=== PATIENT | male | born 1950 | race Caucasian/White ===

== ENCOUNTER 2018-01-09 06:51 | Day surgery (SDC) | payer MEDICARE, SELFPAY ==
[2018-01-09] VITALS (7 sets, daily range): BP systolic 91–166; BP diastolic 56–74; PULSE 54–67; RESP 16–18; TEMP 36.3–36.8; O2SAT 98–100; BMI 24.2
--- NOTE | 2018-01-09 07:58 | H&P.OPEN ---
Past Medical/Surgical History - Planned Operation Planned Operative Procedure/s: cscope Date of Operative Procedure: 01/09/18 Permit Signed: No S.O.S: No Is This Patient Having a Total Joint: No - Previous Hospitalizations/Surgeries HX Hospitalizations: No HX of Surgeries: heart stent x2,x3 2004,2006. colonoscopy Any Problems With Anesthesia: No You/Your Family Experience Fever (Hyperthermia) With Anes: No Cholinesterase deficiency: No - Cardiovascular Hx Chest Pain within Last 2 months: No Hx of Irregular Heartbeat and/or Afib: Yes - irreg./follows with dr ureña/last visit 11/2017 Hx Heart Attack: Yes - 2004 total of 5 stents Hx Congestive Heart Failure: No Hx Rheumatic Fever: No Hx Hypertension: No Hx Internal Defibrillator: No Hx Pacemaker: No Hx Cardiac Catheterization: Yes - 2005 at [facility] What facility was last heart cath performed: [facility] Date of last Heart Cath: 2005 Hx Cardiac Surgery/Stents/Etc.: Yes - 2004,2005 heart stents x5 Hx Stress Test: Yes - 2016 at [facility] HX Edema: No Hx Pain in Legs when Walking/Leg Cramps: Yes - Respiratory Chronic Cough: No HX of Shortness of Breath: No Hoarseness: Yes Hx Chronic Obstructive Pulmonary Disease (COPD): No Hx Asthma: No Hx Emphysema: No Hx Sleep Apnea: No Hx Oxygen Use at Home: No Hx Respiratory Tract Infection/Cold (presently): No Do You Snore Loudly (louder than talking or can be heard): No Do You Often Feel Tired/ Fatigued/ Sleepy Dring Daytime?: Yes Has Anyone Observed You Stop Breathing During Sleep?: No Result (for STOP score): Negative Hx Smoking: No Smoking Status: Never smoker - Gastrointestinal Hx Gastroesophageal Reflux: Yes - resolved with weight loss/occ heartburn Controlled With Meds: No Hx Gastrointestinal Disorders: No Hx Gastrointestinal Bleed: No Hx Ulcer: No Hx Hiatal Hernia: No Difficulty Chewing/Swallowing: No Recent Onset of Swallowing Problems: No Special diet followed at home: Yes - vegan Hx Unplanned Weight Loss of 20#: No HX Unplanned Weight Gain of 20#: No - Neurological Hx Seizures: Yes - febrile seizures as child HX Syncope/Blackout Spells/Unconsciousness: No Hx CVA/Stroke: No Hx Transient Ischemic Attacks (TIA): No Hx Multiple Sclerosis: No Hx Parkinson's Disease: No Hx Head/Neck Injury: No Hx Headaches: No Hx Back Injury/Pain: No Recent Onset of Speech Difficulty: No Restless Legs: Yes Does patient have nerve stimulator: No Patient instructed to have device shut off: No Rep notified?: No - Blood Disorder Hx Leukemia: No Bleeding Tendencies: No Hx Deep Vein Thrombosis: No Hx High Cholesterol: Yes - in the past/controlled with vegan diet Blood Transmitted Disease: No Hx Hepatitis: No Hx Cirrhosis: No Hx Anemia: No Hx Blood Disorders: No - Genitourinary Hx Renal Disease: No Hx Dialysis: No - Musculoskeletal Hx Arthritis: Yes - oa Hx Rheumatoid Arthritis: No Hx Gout: No Recent Onset of an Orthopedic Problem: No - Endocrine Hx Diabetes: No Thyroid Disease: Yes - on med Hx Steroid Therapy: No - Psycho/Social Hx Substance Use: No Hx Alcohol Use: No Hx Anxiety: Yes - mild Hx Depression: No Mental Illness: No Hx Dementia: No - Miscellaneous Hx Cancer: No Recent Exposure to Contagious Disease: No Active MRSA: No Hx of C-Diff: No Any Loose Teeth: No Allergies No Known Allergies Allergy (Verified 01/08/18 09:16) - Discharge Is Pt Admitted From a Long Term, or a Care Home: No Who Could Help: After D/C, Where Do you Plan to Go: Return Home - From the PAT History Number of Risk Factors: 4 - Physical Exam General: Alert, Oriented x3, Cooperative HEENT: Atraumatic Lungs: Normal air movement Cardiovascular: Regular rate, Regular Rhythm Abdomen: Soft, Non Tender, Non-Distended Vital Signs Temp Pulse Resp BP Pulse Ox 97.5 F L 67 16 116/71 99 01/09/18 07:05 01/09/18 07:05 01/09/18 07:05 01/09/18 07:05 01/09/18 07:05 Oxygen Delivery Method Room Air Weight: 198 lb 13.711 oz Body Mass Index (BMI) 24.2 Assessment/Plan Patient is a 67-year-old male for screening colonoscopy. 1. Patient reports he has had a colonoscopy 10 years ago which was normal. He has no abdominal pain or blood in his stool. He has no family history of colon cancer. 2. I explained endoscopy in detail to the patient. I explained the risks including but not limited to stroke or heart attack with anesthesia, perforation of the GI tract, bleeding, infection. I explained that any of these could necessitate further emergency surgery. The patient understands and all questions were answered sufficiently. The patient wishes to proceed with procedure. Elijah Jones MD Pager: [facility] [address] [place] [address] [address] [place] [address] Office: Surgery Risks - Colonoscopy Risks Include but are not Limited To: Risks include but are not limited to: Bleeding, perforation requiring further surgery, inability to complete colonoscopy requiring barium enema.
--- NOTE | 2018-01-09 08:42 | OP.ENDO_ITS ---
Patient Name: Jericho Wagoner Procedure Date: 01/09/2018 7:51 AM Date of : 1950 Age: 67 Procedure: Colonoscopy Indications: Screening for colorectal malignant neoplasm Providers: Elijah Jones MD Medicines: Monitored Anesthesia Care Patient Profile: This is a 67 year old male. Last Colonoscopy: 10 years ago. Complications: No immediate complications. Procedure: Pre-Anesthesia Assessment: - Prior to the procedure, a History and Physical was performed, and patient medications and allergies were reviewed. The patient's tolerance of previous anesthesia was also reviewed. The risks and benefits of the procedure and the sedation options and risks were discussed with the patient. All questions were answered, and informed consent was obtained. Prior Anticoagulants: The patient has taken no previous anticoagulant or antiplatelet agents. After reviewing the risks and benefits, the patient was deemed in satisfactory condition to undergo the procedure. After I obtained informed consent, the scope was passed under direct vision. Throughout the procedure, the patient's blood pressure, pulse, and oxygen saturations were monitored continuously. The pediatric colonoscope was introduced through the anus and advanced to the cecum, identified by the appendiceal orifice, ileocecal valve and palpation. The colonoscopy was performed without difficulty. The patient tolerated the procedure well. The quality of the bowel preparation was inadequate. Scope In: 8:06:00 AM Scope Withdrawal Time 0 hours 8 minutes 26 seconds Scope Out: 8:35:22 AM Total Procedure Duration Time 0 hours 29 minutes 22 seconds Findings: The entire examined colon appeared normal on direct and retroflexion views. Impression: - Preparation of the colon was inadequate. - The entire examined colon is normal on direct and retroflexion views. - No specimens collected. Recommendation: - Discharge patient to home. - Resume previous diet. - Continue present medications. - Repeat colonoscopy in 1 year because the bowel preparation was suboptimal. Procedure Code(s): --- Professional --- G0121, Colorectal cancer screening; colonoscopy on individual not meeting criteria for high risk Diagnosis Code(s): --- Professional --- Z12.11, Encounter for screening for malignant neoplasm of colon CPT copyright 2017 [employer]. All rights reserved. The codes documented in this report are preliminary and upon farm crops teacher review may be revised to meet current compliance requirements. Elijah Jones MD 01/09/2018 8:42:18 AM This report has been signed electronically. Number of Addenda: 0 Note Initiated On: 01/09/2018 7:51 AM
== END 2018-01-09 09:37 | disposition home or self-care (01) ==
LOC: EN 06:51 → AC 06:52
PROVIDERS: Family Provider Family Medicine; PCP Family Medicine; Referring Provider Surgery; Visit Provider Surgery
PROC: 0DJD8ZZ Inspection of Lower Intestinal Tract, Via Natural or Artificial Opening Endoscopic (ICD-10-PCS; CPT 45378; principal; 2018-01-09 07:55)
DX: Z12.11 Encounter for screening for malignant neoplasm of colon (principal); I25.2 Old myocardial infarction; G25.81 Restless legs syndrome; M19.90 Unspecified osteoarthritis, unspecified site; E06.9 Thyroiditis, unspecified; F41.9 Anxiety disorder, unspecified; I49.9 Cardiac arrhythmia, unspecified; Z86.39 Personal history of other endocrine, nutritional and metabolic disease; Z86.19 Personal history of other infectious and parasitic diseases; Z95.5 Presence of coronary angioplasty implant and graft; Z79.82 Long term (current) use of aspirin; Z79.899 Other long term (current) drug therapy
CPT/HCPCS: G0121; J7120

== ENCOUNTER 2018-04-30 10:00 | Outpatient (RCR) | payer MEDICARE, SELFPAY ==
--- NOTE | 2017-12-04 15:15 | HP.PTEVAL_ITS ---
Patient's Visit Information ANISH MENDOZA is a 67 year old M referred to Physical Therapy by Chon Banks DO with a diagnosis of LOW BACK PAIN,CHRONIC PAIN. Date of Evaluation: 12/04/17 Physical Therapist: Kenan Beth PT, - Visit Plan Frequency: 1-2x /Week Duration: 4 Weeks Plan: POSTURAL EX'S ,LE FLEXABLITY HIP ,STRENGTHENING HIPS DLS - Subjective Subjective: This 67 y/o male presents to physical therapy with low back pain . Patient has had pain located hip anterior and mid ocassionally lumbar. Patient lifting cooler caused back pain. Patient pain concern unable to standing upright and tight hip muscles unable ride motorcycle.Denies parthesia/tingling. Coughing /sneezing -. Patient wakes up throughout night. Patient symptoms worse in walking ,standing,elevation from chair unable to stand upright.Symptoms better movement,eating.Patient symptoms affect QOL and function. 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 SOCAIL: . HOBBIES: dancing - Pain Bilateral Back Pain Intensity (Out of 10): 0 Pain Intensity Range: 10 Bilateral Hip Pain Intensity (Out of 10): 4 Pain Intensity Range: 10 - Objective POSTURE: anterior tilt,hips/knees flexed flexed foward. GAIT: mild foward posture,hips/knees flexed reciproacl pattern. NEURO: denies parathesia/tingling ,reflexes L3-4,L4-5,L5-S1. MMT:Quads/hams 5/5,hip flexion 4/5,hip abd 3+/5,4-/5 ,ankle 5/5. FLEXABLITY: hipd add mod tight ,hip flexors mod tight,piriformis mod tight. LUMBAR ROM: flexion WFL,extension mod loss,side glides min loss. + Giancarlo test - Special Tests L/S Slump test left side: Negative L/S Slump test right side: Negative L/S Left Straight Leg Raise: Negative L/S Right Straight Leg Raise: Negative R Hip Scour: Positive R Hip [place] - Intraarticular Pathology: Negative R Hip Trendelenberg - Glut Medius: Negative R Hip Bernardo - IT Band: Negative L Hip Scour: Positive L Hip Trendelenberg - Glut Medius: Negative L Hip Bernardo - IT Band: Negative - Goals Goal 1:: Independant with HEP Goal Time Frame: 2-4 Weeks Goal 2:: Improve ROM of hips ROM to improve hobbies and function with ADL'S Goal Time Frame: 2-4 Weeks Goal 3:: Increase strength of bilateral hip abd to 4/5 with less pain to improve function with ADL'S. and hobbies. Goal Time Frame: 2-4 Weeks Goal 4:: Patient to improve ability with hobbies and ADLS' with less hip and back pain. Goal Time Frame: 2-4 Weeks Goal 5:: Patient to improve back owestry by 5 points to improve QOL. Goal Time Frame: 2-4 Weeks - Rehabilitation Potential Physical Therapy Diagnosis: This patient has weakness of bilteral hip abd with decrease ROM ,anterior tilt from tight hip flexors and decrease lumbar ROM thus patient benifit from skilled PT Rehabilitation Potential: Good - Anticipated Interventions Patient/Client Instruction: Educate patient on: Condition, Plan of Care For the Purpose of:: To decrease pain, To increase ROM, To improve muscle performance and motor function, To increase tolerance to activity/condition/ position, To improve ability of physical actions for home/community/work/leisure , To improve health of tissue, To decrease soft tissue restriction, To increase flexibility/ROM, To reduce risk of recurrence, To improve ability to perform tasks related to life management Therapeutic Exercise to Include: Strength training, Body mechanics, Postural training, Flexibilty training, Dynamic Lumbar Stabilization Comment: LE FLEXABLITY HIP/PRE'S For the Purpose of:: To decrease pain, To increase ROM, To improve muscle performance and motor function, To increase tolerance to activity/condition/ position, To improve ability of physical actions for home/community/work/leisure , To improve health of tissue, To decrease soft tissue restriction, To increase flexibility/ROM, To improve ability to perform tasks related to life management TENS: Yes IF ES: Yes Cryotherapy (ice pack, ice massage): Yes Thermo therapy (hot pack): Yes Ultrasound (thermal/non thermal): Yes For the Purpose of:: To decrease pain, To increase ROM, To improve health of tissue, To decrease soft tissue restriction, To increase flexibility/ROM Thank you for the opportunity to evaluate your patient. For Medicare and Medicare HMO plans, please review the plan of care and approve it. It will need to be FAXED BACK to us at [phone] for Medicare purposes. Please let me know if there are questions or concerns regarding this plan of care. Physician Signature: Date:
--- NOTE | 2018-07-04 16:54 | HP.PTDCNRP_ITS ---
HP - Discharge Summary (1) - Patient Information ANISH MENDOZA was seen in my office for initial evaluation on 12/04/17. The following Plan of Care was established for this patient: Initial Frequency: 1-2x /Week Initial Duration: 4 Weeks - Anticipated Interventions Patient/Client Instruction: Educate patient on: Condition, Plan of Care For the Purpose of:: To decrease pain, To increase ROM, To improve muscle pe rformance and motor function, To increase tolerance to activity/condition/position, To improve ability of physical actions for home/community/work/leisure, To improve health of tissue, To decrease soft tissue restriction, To increase flexibility/ROM, To reduce risk of recurrence, To improve ability to perform tasks related to life management Therapeutic Exercise to Include: Strength training, Body mechanics, Postural training, Flexibilty training, Dynamic Lumbar Stabilization For the Purpose of:: To decrease pain, To increase ROM, To improve muscle performance and motor function, To increase tolerance to activity/condition/position, To improve ability of physical actions for home/community/work/leisure, To improve health of tissue, To decrease soft tissue restriction, To increase flexibility/ROM, To improve ability to perform tasks related to life management TENS: Yes IF ES: Yes Cryotherapy (ice pack, ice massage): Yes Thermo therapy (hot pack): Yes Ultrasound (thermal/non thermal): Yes For the Purpose of:: To decrease pain, To increase ROM, To improve health of tissue, To decrease soft tissue restriction, To increase flexibility/ROM This patient was last seen in our office 04/30/18. Pertinent comments regarding their Physical therapy will appear below: This patient seen for PT for lumbar pain with PT focusing on flexablity due to tight hips,strength hips,core abd /back ,moblity thus is d/c from PT. At this point I will be discontinuing this patient from physical therapy. I would be happy to see this patient again in the future if found appropriate by the physician. Thank you! Kenan Beth, PT, Cert MDT, OCS
== END 2018-04-30 19:00 | disposition home or self-care (01) ==
LOC: PT 10:00
PROVIDERS: Family Provider Family Medicine; PCP Family Medicine; Visit Provider Family Medicine
DX: M54.5 Low back pain (principal); G89.29 Other chronic pain
CPT/HCPCS: 97110; 97162

== ENCOUNTER → 2018-10-13 | Outpatient (CLI) | payer MEDICARE, SELFPAY ==
[2018-09-12 11:24] VITALS: BMI 24.5
[2018-10-13 12:20] LABS: Albumin, Serum 3.4 g/dL (3.2-5.0)
== END | disposition home or self-care (01) ==
PROVIDERS: Family Provider Family Medicine; PCP Family Medicine; Referring Provider Specialist; Visit Provider Specialist
DX: Z01.812 Encounter for preprocedural laboratory examination (principal)
CPT/HCPCS: 36415; 82040

== ENCOUNTER 2018-10-17 08:14 | Inpatient (IN) | payer MEDICARE, SELFPAY ==
[2018-06-19 11:52] VITALS: BMI 24.5
[2018-09-12 11:24] VITALS: BP 105/58; PULSE 58; RESP 98; TEMP 36.6; O2SAT 17; BMI 24.5
[2018-09-12 12:39] LABS: Absolute Lymphocyte Count 1.29 X10^3/ul (0.83-4.51); Absolute Neutrophil Count 3.9 X10^3/uL (2.0-7.7); Basophil# 0.01 X10^3/uL; Basophil% 0.2 % (0-1); Eosinophil# 0.05 X10^3/uL; Eosinophils% 0.8 % (0-5); Hematocrit 45.8 % (40-54); Hemoglobin 14.9 g/dl (13.0-16.5); Lymphocyte # 1.29 X10^3/ul (4.0); Lymphocyte % 21.9 % (19-41); Mean Corp Hgb Conc 32.5 g/gl (32-36); Mean Corpuscular Hgb 32.5 pg (27.0-32.0); Mean Platelet Vol. 11.2 fl (6.2-12.0); Monocyte# 0.69 X10^3/uL; Monocyte% 11.7 % (0-10); Neutrophil # 3.86 X10^3/uL (2.7-7.7); Neutrophil % 65.4 % (47-70); Platelet Count 139 K/mm3 (150-450); RBC Distribution Width CV 13.4 % (11.6-14.6); RBC Distribution Width SD 48.6 fl (35.1-43.9); Red Blood Count 4.58 M/mm3 (4.6-6.2); White Blood Count 5.9 K/mm3 (4.4-11.0)
[2018-09-12 12:42] LABS: POSITIVE COUNT NO; POSITIVE DIFFERENTIAL NO; POSITIVE MORPHOLOGY NO
[2018-09-12 13:12] LABS: Anion Gap 6 (5-15); BUN 17 mg/dL (7-18); BUN/Creat Ratio 15.2 RATIO (10-20); Calcium,Total 8.7 mg/dL (8.5-10.1); Chloride 108 mmol/L (98-107); Creatinine, Serum 1.12 mg/dL (0.70-1.30); EST Glomerular Filtration Rate 69 mL/min (>60); Est Glom Filt Rate - Afr Amer 83 mL/min (>60); Estimated Creatinine Clearance 75.35 ml/min; Glucose 88 mg/dL (74-106); Potassium 4.2 mmol/L (3.5-5.1); Sodium Level 141 mmol/L (136-145); Thyroid Stim Hormone (TSH) 3.17 uIU/mL (0.358-3.74)
--- NOTE | 2018-09-14 23:00 | PCM.HP.BLA ---
History and Physical History and Physical Patient Name: Jericho GastonB: 1950 From: TRINH BURGOS PA-C DATE OF SURGERY: 09/26/2018 SCHEDULED PROCEDURE: Left total Hip arthroplasty HISTORY OF PRESENT ILLNESS: Preoperative history and physical exam was performed on September 12, 2018. This is a 68-year-old male who has been having ongoing pain in bilateral hips for the past couple years. Patient denied any trauma or injury. Patient states over the past 3 months pain has become worse. Patient does have start up pain. They can rates as high as a 10/10 with activity. He complains of stiffness in bilateral hips. Patient states his pain is intermittent, aching, sharp, stabbing. Patient has difficult time with activities of daily living including dancing as well as motorcycle riding. He feels unsafe riding his motorcycle. Patient has difficult time getting dressed and putting on his socks. He has increased pain riding in a car. 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 Patient has been using meloxicam which helped initially left hip is worse than the right hip. He does complain of groin pain bilaterally. Patient has a medical history pertinent for hypercholesterolemia as well as previous heart stents and 2006. Has had previous heart attack. Patient denies previous surgeries on bilateral hips. We are currently getting surgical clearance from patient's director of knowledge management as well as primary care physician. He currently denies chest pain, shortness of breath, fevers chills or recent infections. After failing conservative measures and discussing treatment options with Dr. Darinel Awan, the patient would like to proceed with a left total hip arthroplasty. REVIEW OF SYSTEMS: ROS: Const: Denies anorexia, change in appetite, fever, difficulty sleeping, weight change. CV: Reports peripheral vascular disease, but denies chest pain, heart murmur and irregular heartbeat. Resp: Denies asthma, cough, pneumonia, sleep apnea, shortness of breath, tuberculosis and wheezing. GI: Reports heartburn, but denies constipation, diarrhea, nausea, rectal itching, bloody stools and vomiting. : Denies incontinence. Musculo: Reports pain and morning stiffness, but denies leg swelling, trouble walking and weakness. Skin: Denies Raynaud's, history of shingles and tattoo. Neuro: Reports numbness/tingling but denies ambulatory dysfunction, dizziness and tremor. Psych: Reports anxiety, but denies depression, insomnia, mental illness and stress. Zeeshan/Lymph: Denies anemia, bleeding/bruising tendency and past transfusion. Reviewed, no changes. PAST MEDICAL HISTORY: Advance Care Plan: Other Directive, POA Effective Date: 08/16/2018 Other Directive, LIVING WILL Effective Date: 08/16/2018 PMH: Medical Problems: Heart Attack - history of Hypercholesterolemia Accidents: Fracture - left wrist as a child Sports Related Injury - right jean laceration 70 stitches RT Thumb Surgical Hx: heart stents - (2004) total of 4 stents AND 2006 Tonsillectomy, RT Thumb Stitches Anesthesia Complications: None Assistive Devices: Glasses Reviewed, no changes. 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 Personal Habits: Cigarette Use: Never.Smokeless Tobacco: Never Used Smokeless Tobacco - (09/12/2018).E-Cigarette Use: Never used.Alcohol: Denies use.Drug Use: Denies Use.Enjoy Exercising: Exercises 1-3 X/Week. Reviewed and updated. VITALS: Ht: 75 Wt: 200lb Wt k.720 BMI: 25.0 BP: 102/60 Pulse: 64 Resp: 16 T: 96.9 T: 36.1C ALLERGIES: No Known Drug Allergy MEDICATIONS: Potassium 10 Meq 1 po qday, Aspir-Low 81 mg 1 po qd, [place]-3 Fish Oil 1000 mg 1 po qd, Metoprolol Succinate ER 25 mg 1 PO daily, Meloxicam 7.5 mg prn every other day, Co Q10 100 mg 1 by mouth every day, Levothyroxine 88mcg 1 PO daily, Tylenol 325 mg 1po qhs, Lipitor 20 mg 1 by mouth every day PRE-OP EXAM: General appearance:NORMAL Other: Eyes: Conjunctivae and lids: NORMAL Pupils: ERR Ears, Nose, Mouth, and Throat: NORMAL Other: Inspection of lips, teeth and gums: NORMAL Other: Neck: Examination of neck: no masses noted. Respiratory: Assessment of respiratory effort: NORMAL Other: Auscultation of lungs: clear to auscultation no wheezes, rhonchi or rales. Cardiovascular: Auscultation of heart: regular rate and rhythm, no murmurs, gallops or rubs. Gastrointestinal: Exam of abdomen: soft, nontender, nondistended bowel sounds present. PHYSICAL EXAMINATION: Patient walks with an antalgic gait. Left hip flexion: 65 flexion, internal rotation neutral, external rotation 20. Patient has obligatory external rotation with flexion. 2 mm shorter on the left. Sensation intact to light touch. Neurovascularly intact. Diagnostic studies: Bilateral hips reveal joint space narrowing, subchondral sclerosis, osteophyte formation consistent with severe bilateral hip osteoarthritis with the left being worse than the right. IMPRESSION: 1. Left hip osteoarthritis 2. Right hip osteoarthritis 3. Hypercholesterolemia 4. History of heart attack 5. History of heart stents PLAN: Dr. Darinel Awan did discuss and review with the patient all treatment options including surgical versus nonsurgical options. Patient does wish to proceed with the above-stated procedure. Potential risks, benefits, and complications of the procedure were discussed in detail including but not limited to , infection, nerve and blood vessel damage, persistent pain, numbness, tingling, paresthesias, blood clot, pulmonary embolism, and requirement for possible further surgery. The patient expressed full understanding and has no further questions for the doctor. Patient does agree to proceed with the above-stated procedure and has signed the surgery consent form. This dictation was created using voice recognition software. Phonetic and/or grammatical errors may exist.. ___ I have re-examined the patient. There are no clinical changes since date of exam. ___ See progress notes for changes. ___ Dictated on admission Date: Time: Signature:
--- NOTE | 2018-09-21 12:19 | CASEMGMT ---
Spoke with patient regarding discharge plans for after upcoming surgery. Patient reports he believes he has a cardiac ablation scheduled for October 01 and is unsure of when his hip surgery will be. After hip surgery, patient plans to return home with assistance from spouse/family. Patient believe that he has outpatient PT set up but it was be changed if surgery date is changed, will have transportation assistance. Patient has a wheeled walker, toilet riser, and grab bars. Has a tub/shower combo with 1 small step to enter. There is a bedroom and bathroom on the 1st level of the home. There are 3-4 steps to enter home from garage. Informed patient that after surgery, RN-CM will follow up for further discharge planning. Roxy Hobson LPN Clinical Support
--- NOTE | 2018-10-11 15:30 | EKG12_ITS ---
Test Reason : PRE OP Blood Pressure : / mmHG Vent. Rate : 060 BPM Atrial Rate : 060 BPM P-R Int : 212 ms QRS Dur : 092 ms QT Int : 432 ms P-R-T Axes : 063 039 065 degrees QTc Int : 432 ms Sinus rhythm with 1st degree A-V block Possible Left atrial enlargement Borderline ECG Confirmed by KORINA TINEO, TERRIE ([id number]), writer editor FRANCESCO MARTÍNEZ ([id number]) on 10/12/2018 1:40:42 PM Referred By: Darinel Awan Confirmed By:ALYSE HUI MD
[2018-10-11 16:06] LABS: Absolute Lymphocyte Count 1.25 X10^3/uL (0.83-4.51); Basophil# 0.03 X10^3/uL; Basophil% 0.5 % (0-1); Eosinophil# 0.15 X10^3/uL; Eosinophils% 2.4 % (0-5); Hematocrit 40.6 % (40-54); Hemoglobin 13.3 g/dL (13.0-16.5); Lymphocyte # 1.25 X10^3/ul (4.0); Lymphocyte % 19.9 % (19-41); Mean Corp Hgb Conc 32.8 g/dL (32-36); Mean Corpuscular Hgb 33.2 pg (27.0-32.0); Mean Corpuscular Volume 101.2 fL (80-94); Mean Platelet Vol. 10.8 fl (6.2-12.0); Monocyte% 11.1 % (0-10); NRBC Flagged by Analyzer 0 % (0-5); Neutrophil # 4.15 X10^3/uL (2.7-7.7); Neutrophil % 65.9 % (47-70); POSITIVE MORPHOLOGY YES; Platelet Count 170 K/mm3 (150-450); RBC Distribution Width SD 48.9 fl (35.1-43.9); Red Blood Count 4.01 M/mm3 (4.6-6.2); White Blood Count 6.3 K/mm3 (4.4-11.0)
[2018-10-11 16:22] LABS: Differential Indicated SCAN CRITERIA MET
[2018-10-11 16:34] LABS: Anion Gap 4 (5-15); BUN 18 mg/dL (7-18); BUN/Creat Ratio 19.1 RATIO (10-20); Calcium,Total 8.4 mg/dL (8.5-10.1); Chloride 106 mmol/L (98-107); Creatinine, Serum 0.94 mg/dL (0.70-1.30); EST Glomerular Filtration Rate 84 mL/min (>60); Est Glom Filt Rate - Afr Amer 102 mL/min (>60); Estimated Creatinine Clearance 89.78 ml/min; Glucose 85 mg/dL (74-106); Potassium 4.3 mmol/L (3.5-5.1); Sodium Level 140 mmol/L (136-145)
[2018-10-11 17:04] LABS: Differential Comment SCANNED
[2018-10-16 14:05] VITALS: BMI 24.5
[2018-10-17] VITALS (12 sets, daily range): BP systolic 103–133; BP diastolic 49–75; PULSE 50–61; RESP 16–18; TEMP 36.3–36.7; O2SAT 97–100; BMI 24.5
[2018-10-17] MEDS: Lactated Ringers 1,000 ML 999 ML IV (07:15)
[2018-10-17] MEDS: Magnesium Sulfate 4gm/100mL 4 GM/100 ML IV.SOLN. IV (09:05)
[2018-10-17] MEDS: Gabapentin 600 MG Tablet PO (09:13)
[2018-10-17] MEDS: Acetaminophen 500 MG Tablet 1000 MG PO ×2 (09:13→22:54)
[2018-10-17] MEDS: Scopolamine 1mg/72hr Patch 1 PATCH TD (09:15)
[2018-10-17 09:21] LABS: Bedside Glucose 97 mg/dL (70-110)
[2018-10-17] MEDS: Cefazolin 2 GM in 0.9% Normal Saline 100 ML IV (10:44)
--- NOTE | 2018-10-17 11:45 | RAD_ITS ---
STUDY: X-RAY - PELVIS AND LEFT HIP REASON FOR EXAM: Male, 68 years old. Hip replacement surgery TECHNIQUE: Single limited AP views of the pelvis and hip. COMPARISON: None. FINDINGS: Single limited AP view of the left hip was performed in the operating room as the patient is undergoing total left hip replacement surgery. Components demonstrate anatomic alignment. No plain film evidence of complication. RAD/Hip 1 view with Pelvis IMPRESSION: Limited AP film of the left hip performed during replacement of the left hip joint. Electronically Signed: Sherman Ibrahim MD at 12:34 EDT , Service support ,
--- NOTE | 2018-10-17 12:07 | PCM.OPRPT ---
Report of Operation Date of Procedure: 10/17/18 Pre-Operative Diagnosis: Left hip primary osteoarthritis Post-Operative Diagnosis: Left hip primary osteoarthritis Surgery/Procedure Performed:: Left direct anterior total hip replacement Description of Surgical Findings:: Stable hip with equal leg lengths director of early childhood education: Danika Escobar Type of Anesthesia:: Spinal General Anesthesia Anesthesiologist: Randall Perez Special Medications: 2 g Ancef, 1 g TXA at incision, 1 g TXA closure, 10 mg Decadron, joint cocktail (5 mg Duramorph, 30 mL of 0.5% Ropivicaine, 1000 units of epinephrine, 30 mg of Toradol) Specimen's removed: Bony cuts Estimated Blood Loss (mL): 250 mL Fluids Replaced: 800 mL crystalloid Description of Procedure: Components used: 1. Accolade 2 Ofelia femoral stem size 9 127? 2. Mason trident 2 acetabular shell size 60 mm 3. Mason X3 polyethylene G 4. Ofelia Biolox delta 36mm, -5mm femoral head Brief history operative indications: 68yo male who failed conservative measures for their hip osteoarthritis. X-rays were consistent with osteoarthritis including joint space narrowing, osteophyte formation and subchondral cysts. Total hip replacement was discussed with the patient with risks and benefits including but not limited to blood loss, DVTs, PEs, neurovascular damage, dislocation, general risks of anesthesia including loss of life. Patient demonstrated an understanding medical clearance is obtained the patient was consented for surgery. Procedure: On the date of procedure the patient's L hip was marked in the preoperative area. Patient was then taken back to the operating room where anesthesia assumed control of the C-spine and airway and administered anesthetic. Patient was transferred to the operating table and placed in the supine position. The hips were placed at the break of the bed and a sacral bump was placed. The L lower extremity was then prepped out in a sterile fashion using chlorhexidine while the surgeon scrubbed. The PA was vital in the positioning of the patient. Upon reentering the room the L lower extremity was draped in the standard orthopedic fashion and the incision was marked. A timeout was called and everyone agreed upon the side, the site, the procedure be performed, antibody given, and patient's identity. At this time incision was made through skin, subcutaneous tissue, and fat down to fascia. The fascia was then incised and the TFL was retracted laterally. A retractor was placed on the lateral border of the femoral neck. Attention was directed to the inferior portion of the approach and all crossing vessels were identified and appropriately coagulated. A retractor was then placed on the medial portion of the femoral neck. The anterior capsule was then cleared of all soft tissue and then H shaped capsulotomy was made. The retractors were then placed inside the capsule. The femoral neck was identified and a cleanup cut was made. At this time a power corkscrew was used to remove the femoral head. Attention was then turned toward the acetabulum where the soft tissues were appropriately retracted and the acetabulum was sequentially reamed to 60 mm. A 60 mm cup was then selected and impacted into place. Acetabular liner was impacted into place and locking mechanism was verified. The position of the acetabular cup was then verified under live fluoroscopy. Attention was then turned to the femur. Soft tissue releases on the medial and lateral femoral neck were appropriately done, the leg was externally rotated and lateralized. A Navarro retractor was placed medially and proximally to the greater trochanter this allowed appropriate visualization and exposure of the femoral canal. Rongeour was then used to remove excess lateral bone. A canal finder and entry broach were used to open the proximal canal. Once we verified we were down the femoral canal we subsequently broached up to a size 9 femur. The appropriate neck was placed in the previously selected head was trialed with a -5 mm neck. Traction was pulled and the hip was reduced with internal rotation. Once it was appropriately reduced and stability was checked. There was minimal shuck, equal leg lengths and appropriate stability with hyperextension and external rotation as well as with 90? flexion and internal rotation. Fluoroscopy was then also used to verify the position of the components and leg lengths using the contralateral side for comparison. The trial components were then dislocated the proximal femur was again exposed and the components were removed from the wound. The final components were verified and opened. The wound was copiously irrigated out with normal saline. The acetabulum was checked for any residual debris. The final components were placed and impacted. Traction and internal rotation were again used to reduce the hip. After adequate reduction the hip remained stable with appropriate leg lengths. The final components were once again checked with live fluoroscopy and were found to be satisfactory. The wound was then copiously irrigated with normal saline once more, and hemostasis was obtained. Closure was then done using #1 Vicryl runner to close the fascia. A 2-0 vicryl interuppted sutures were used to close the subcutaneous skin. A 3-0 Monocryl and Steri-Strips were used for final skin closure. A Silverlon dressing was placed. Patient was awakened by anesthesia and transferred to the [facility]. Patient was then transferred to the PACU for recovery. Postoperative plan: Patient will get 24 hours postop antibiotics. Patient will get in-house physical therapy and will be weight-bear as tolerated. Patient will follow up in office in 2 weeks for a wound check and x-rays. O Grafts/Implants Used: Ofelia - Complications No intraoperative complications - Admit VTE Documentation VTE Present on Admission: No VTE Mechan Device Prophylaxis: SCD's, Thigh High CARLTON Hose VTE Pharm Prophylaxis ordered?: Yes
[2018-10-17] MEDS: Lactated Ringers 1,000 ML 125 ML IV ×3 (12:37→18:37)
--- NOTE | 2018-10-17 13:15 | RAD_ITS ---
STUDY: X-RAY - PELVIS AND LEFT HIP REASON FOR EXAM: Male, 68 years old. Postop from left hip replacement surgery TECHNIQUE: 3 views of the pelvis and hip. COMPARISON: None. FINDINGS: Patient is postop from left hip replacement surgery. Components demonstrate anatomic alignment. No plain film evidence of postoperative complication. Normal postoperative soft tissue swelling and subcutaneous emphysema. Severe right hip arthrosis noted with plain film changes of AVN noted. RAD/Hip Min 2 Views (Portable) IMPRESSION: Replaced left hip joint demonstrates anatomic alignment. No plain film evidence of postoperative complication Severe right hip arthrosis with plain film changes of AVN Electronically Signed: Sherman Ibrahim MD at 14:28 EDT , Service support ,
[2018-10-17 13:16] LABS: Bedside Glucose 152 mg/dL (70-110)
[2018-10-17] MEDS: Aspirin 81 MG TAB.CHEW PO (18:38)
[2018-10-17] MEDS: Ketorolac 15 MG/ML Vial IV (18:47)
[2018-10-17] MEDS: Cefazolin 1 GM/50 ML BAG IV (19:39)
--- NOTE | 2018-10-17 19:44 | PCM.PN.HOSP ---
Subjective: 68-year-old male with a history of hyperlipidemia, CAD presents with left hip pain. He underwent a scheduled left total hip replacement. Given his radio frequency ablation of his cardiac arrhythmia he had had preclearance prior to surgery which he did fine with. He is doing well after surgery, a little bit sleepy but his states that he has been stable with his medical conditions prior to surgery. He does also have right hip pain but they deemed that the left hip was worse. Vitals/I&O's: Vital Signs Temp Pulse Resp BP Pulse Ox 97.9 F 56 L 16 103/58 L 97 10/17/18 18:41 10/17/18 18:41 10/17/18 18:41 10/17/18 18:41 10/17/18 18:41 Oxygen Flow Rate (L/min) 2 Oxygen Delivery Method Room Air Weight: 201 lb 8.04 oz Body Mass Index (BMI) 24.5 Finger Stick Blood Glucose 152 Intake and Output for Last 24 Hours 10/15/18 10/16/18 10/17/18 23:59 23:59 23:59 Intake Total 2500 / 2500 Balance 2500 / 2500 General: Alert, Oriented x3, Cooperative, No apparent distress HEENT: Atraumatic, PERRLA, EOMI, Normocephalic Oral: Moist Mucosa Neck: Supple, No JVD Lungs: Clear to auscultation, Normal air movement, No rhonchi, No wheeze, No rales, Diminished Cardiovascular: Regular rate, Regular Rhythm, Normal S1, Normal S2, No murmurs Abdomen: Soft, Non Tender, Non-Distended, No Hepato-splenomegaly Extremities: No edema, Capillary Refill Less than 3 Seconds Skin: No rashes, No breakdown, Incision - Dressing is intact Neurological: Neuro grossly intact, Sensory exam intact to light touch and pain Psych/Mental Status: Normal Affect, Appropriate Laboratory Results 10/17/18 09:09: POC Glucose 97 10/17/18 13:13: POC Glucose 152 H Current Medications Acetaminophen (Tylenol) 1,000 mg PO Q8 [facility] Last Admin: 10/17/18 18:36 Dose: Not Given Documented by: Aspirin (Aspirin, Baby) 81 mg PO BIDCM [facility] Last Admin: 10/17/18 18:38 Dose: 81 mg Documented by: Atorvastatin Calcium (Lipitor) 20 mg PO QHS [facility] Enteral Nutritional Formula (Ensure Surgery) 237 ml PO TIDCM [facility] Last Admin: 10/17/18 18:38 Dose: Not Given Documented by: Famotidine (Pepcid) 20 mg PO DAILY [facility] Lactated Ringer's () 1,000 mls @ 125 mls/hr IV .Q8H [facility] Last Admin: 10/17/18 18:37 Dose: 125 mls/hr Documented by: Cefazolin Sodium () 1 gm in 50 mls @ 150 mls/hr IV Q8H [facility] Stop: 10/18/18 03:19 Last Admin: 10/17/18 19:39 Dose: 150 mls/hr Documented by: Ketorolac Tromethamine (Toradol) 15 mg IV Q6H PRN PRN PRN Reason: MILD-MOD PAIN (1-10) Stop: 10/19/18 07:14 Last Admin: 10/17/18 18:47 Dose: 15 mg Documented by: Levothyroxine Sodium (Synthroid) 88 mcg PO DAILY@0600 [facility] Meloxicam (Mobic) 7.5 mg PO BID [facility] Metoprolol Succinate (Toprol Xl (Beta Maddie)) 25 mg PO DAILY [facility] Ondansetron HCl (Zofran) 4 mg IV Q8H PRN PRN PRN Reason: NAUSEA Oxycodone HCl (Oxyir) 2.5 mg PO Q4H PRN PRN PRN Reason: MOD-SEVERE PAIN (4-1010) Potassium Chloride (K-Dur) 10 meq PO DAILY [facility] Pramipexole Dihydrochloride (Mirapex) 0.5 mg PO QHS [facility] Promethazine HCl (Phenergan) 12.5 mg IM Q6H PRN PRN; Protocol PRN Reason: NAUSEA/VOMITING Senna/Docusate Sodium (Senokot-S, Yvonne-Colace) 2 tablet PO BID [facility] Sodium Chloride () 10 - 40 ml IV UD PRN PRN Reason: SALINE FLUSH Medical Necessity - Tobacco Use Smoking Status: Never smoker Assessment/Plan All Active Problems (Last Reviewed 10/16/18 @ 11:39 by Humera Pelletier) Bilateral hearing loss due to cerumen impaction (Acute) 1. Postop left total hip replacement -Pain control per primary -PT/OT -DVT per primary 2. CAD status post 5 stents/HLD/cardiac arrhythmia status post radio frequency ablation -Continue with aspirin, and his statin -Pressures been stable, continue with metoprolol 3. Hypothyroidism -Stable -Continue with Synthroid DVT: Aspirin Code Visit Inpatient E&M: 28130 [facility] Hosp L3
[2018-10-17] MEDS: Senna/Docusate Sodium 1 Tablet 2 TABLET PO (22:54)
[2018-10-17] MEDS: Atorvastatin Calcium 20 MG Tablet PO (22:54)
[2018-10-17] MEDS: Pramipexole Di-HCl 0.5 MG Tablet PO (22:54)
[2018-10-18] MEDS: Cefazolin 1 GM/50 ML BAG IV (02:52)
[2018-10-18 03:08] VITALS: BP 108/52; PULSE 61; RESP 16; TEMP 36.9; O2SAT 95
[2018-10-18] MEDS: Ondansetron 4 MG/2 ML Vial IV (05:05)
[2018-10-18] MEDS: 0.9% NaCl Peripheral Flush Adult/Peds IV (05:05)
[2018-10-18 05:30] LABS: Hematocrit 34.5 % (40-54); Hemoglobin 11.5 g/dL (13.0-16.5); Mean Corp Hgb Conc 33.3 g/dL (32-36); Mean Corpuscular Hgb 33.7 pg (27.0-32.0); Mean Corpuscular Volume 101.2 fL (80-94); Mean Platelet Vol. 10.8 fl (6.2-12.0); Platelet Count 140 K/mm3 (150-450); RBC Distribution Width CV 12.9 % (11.6-14.6); RBC Distribution Width SD 48.2 fl (35.1-43.9); Red Blood Count 3.41 M/mm3 (4.6-6.2); White Blood Count 13.6 K/mm3 (4.4-11.0)
[2018-10-18 05:56] VITALS: RESP 16; O2SAT 95
[2018-10-18 05:56] LABS: Anion Gap 6 (5-15); BUN 15 mg/dL (7-18); BUN/Creat Ratio 13.4 RATIO (10-20); Calcium,Total 7.7 mg/dL (8.5-10.1); Chloride 101 mmol/L (98-107); Creatinine, Serum 1.12 mg/dL (0.70-1.30); EST Glomerular Filtration Rate 69 mL/min (>60); Est Glom Filt Rate - Afr Amer 83 mL/min (>60); Estimated Creatinine Clearance 75.35 ml/min; Glucose 118 mg/dL (74-106); Potassium 4.5 mmol/L (3.5-5.1); Sodium Level 136 mmol/L (136-145)
[2018-10-18] MEDS: Levothyroxine 88 MCG Tablet PO (06:53)
[2018-10-18] MEDS: Acetaminophen 500 MG Tablet 1000 MG PO ×2 (06:53→14:50)
[2018-10-18 09:02] VITALS: PULSE 60
[2018-10-18] MEDS: Famotidine 20 MG Tablet PO (09:02)
[2018-10-18] MEDS: Aspirin 81 MG TAB.CHEW PO ×2 (09:02→17:27)
[2018-10-18] MEDS: Senna/Docusate Sodium 1 Tablet 2 TABLET PO (09:02)
[2018-10-18] MEDS: Meloxicam 7.5 MG Tablet PO (09:02)
[2018-10-18 09:18] VITALS: BP 98/52; PULSE 60; RESP 16; TEMP 36.7; O2SAT 97
--- NOTE | 2018-10-18 09:24 | PCM.PN.ORT ---
Subjective: The patient was sitting in bedside chair upon examination. Patient denies any chest pain, shortness of breath, dizziness, lightheadedness, nausea or vomiting, or calf pain. Pain is controlled on medications. Patient's only complaint is he has not been able to urinate since surgery. Patient did require to be straight cath this morning. He denies previous problems with urinary retention or any prostate issues. Otherwise he is doing well with regards to his left hip. Pain is been well controlled. Objective: Vital signs stable and afebrile. Patient is able to plantarflex and dorsiflex actively. Sensation is intact to light touch to saphenous, sural, superficial and deep peroneal, and tibial distribution. Dressing is clean dry and intact. Negative Homans bilaterally, negative signs and symptoms of DVT. - Physical Exam General: Alert, Oriented x3, Cooperative, No apparent distress Vital Signs Temp Pulse Resp BP Pulse Ox 98.1 F 60 16 98/52 L 97 10/18/18 09:18 10/18/18 09:18 10/18/18 09:18 10/18/18 09:18 10/18/18 09:18 Oxygen Flow Rate (L/min) 2 Oxygen Delivery Method Room Air Weight: 91.4 kg Body Mass Index (BMI) 24.5 Finger Stick Blood Glucose 152 Intake and Output for Last 24 Hours 10/16/18 10/17/18 10/18/18 23:59 23:59 23:59 Intake Total 2500 / 2500 4478 / 4478 Output Total 1750 / 1750 Balance 2500 / 2500 2728 / 2728 Laboratory Tests Past 24 Hrs 10/18/18 10/18/18 04:56 04:56 WBC 13.6 H RBC 3.41 L Hgb 11.5 L Hct 34.5 L MCV 101.2 H MCH 33.7 H MCHC 33.3 RDW Std Deviation 48.2 H RDW Coeff of Elizabeth 12.9 Plt Count 140 L MPV 10.8 Sodium 136 Potassium 4.5 Chloride 101 Carbon Dioxide 29.0 Anion Gap 6 BUN 15 Creatinine 1.12 Estim Creat Clear Calc 75.35 Est GFR (MDRD) Af Amer 83 Est GFR (MDRD) Non-Af 69 BUN/Creatinine Ratio 13.4 Glucose 118 H Calcium 7.7 L POC Glucose 10/17/18 13:13 POC Glucose 152 H Medical Necessity - Tobacco Use Smoking Status: Never smoker Assessment/Plan All Active Problems (Last Reviewed 10/16/18 @ 11:39 by Humera Pelletier) Bilateral hearing loss due to cerumen impaction (Acute) 1. S/P left direct anterior total hip arthroplasty POD #1 2. Continue Pain Medications: Tylenol and OxyIR 3. DVT Prophylaxis: Aspirin 81 mg twice daily for 4 weeks postoperatively 4. PT/OT: Weightbearing as tolerated 5. H & H: 11.5/34.5, asymptomatic 6. Reactive leukocytosis: Currently 13.6, afebrile. Patient did receive Decadron intraoperatively 7. Encouraged Incentive Spirometry 8. Urinary retention: Patient did require straight cath this morning. We will continue to monitor this. Case was discussed with hospitalist. 9. Continue postoperative medical management per medicine 10. Disposition: Overall patient is doing well with regards to his hip and is tolerating physical therapy. If patient is able to urinate today there will be possible discharge home. Medicine will evaluate patient for possible medication for the urinary retention. Patient's prescriptions will be attached to chart. Patient will follow-up per postop instruction.
--- NOTE | 2018-10-18 09:38 | DCINST_ITS ---
Discharge Activity: May Not Drive - while taking narcotic pain medications. May shower in (days): 1 - Turn dressing away from water Ice area for (Minutes): 20 - Every 1-2 hours while awake Weight Bearing Status: Weight bearing as tolerated Elevate: Operative Extremity Additional Activity Instructions:: Wear elastic stockings for 2 weeks. DO NOT use alcohol with narcotic pain medication. DO NOT make important decisions while taking narcotic medication. If you have problems with taking your medication (rash, itching, nausea, etc.) call the office at once. Call your doctor if your incision/area has: Increased Pain/ Swelling, Increased Redness, Foul Smelling Discharge Call your doctor if you observe: Fever of 101 or Higher Remove Dressing in (days):: 4 - Okay to remove on October 22, 2018 Additional Instructions: Follow [facility] postop instructions Allergies/Adverse Reactions: Allergies No Known Allergies Allergy (Verified 10/16/18 11:38) Medications to take at Discharge potassium chloride ER 10 mEq capsule,extended release 10 meq PO QDAY 11/01/17 atorvastatin 20 mg tablet 20 mg PO QHS 08/23/18 Levothyroxine Sodium 1 tab PO DAILY 09/12/18 Metoprolol Succinate 25 mg PO DAILY 09/12/18 Ropinirole HCl [Requip] 2 tab PO QHS 09/12/18 Acetaminophen [Tylenol] 1,000 mg PO Q8 #100 tab 10/18/18 Aspirin [Aspirin, Baby] 81 mg PO BIDCM #60 tab.chew 10/18/18 Famotidine [Pepcid] 20 mg PO DAILY #30 tab 10/18/18 Meloxicam [Mobic] 7.5 mg PO BID #60 tab 10/18/18 Oxycodone [Oxyir] 2.5 mg PO Q4H PRN PRN 5 Days #30 tab 10/18/18 Senna/Docusate Sodium [Senokot-S] 2 tab PO BID #20 tab 10/18/18 The following prescriptions were given: Aspirin [Aspirin, Baby] 81 mg PO BIDCM #60 tab.chew Prescription Printed Meloxicam [Mobic] 7.5 mg PO BID #60 tab Prescription Printed Oxycodone [Oxyir] 2.5 mg PO Q4H PRN PRN 5 Days #30 tab PRN Reason: Mod-Severe Pain (4-01/03) Prescription Printed Famotidine [Pepcid] 20 mg PO DAILY #30 tab Prescription Printed Senna/Docusate Sodium [Senokot-S] 2 tab PO BID #20 tab Prescription Printed Acetaminophen [Tylenol] 1,000 mg PO Q8 #100 tab Prescription Printed Primary Care Physician: Chon Banks DO [Primary Care Provider] - Please follow up with your Primary Care Physician in: f/u 1-2 weeks with PCP to discuss urinary retention Test Results: Test results from this visit will be discussed in further detail at your follow- up appointment, if applicable. Please Follow Up With: [facility] When: 10/12/18 @ 9:00 am Please Follow Up With: Beltran Gotti PA-C When: 10/31/18 @ 11:00
--- NOTE | 2018-10-18 13:24 | CASEMGMT ---
RN CM Assessment Presentation: LTHR Intro role of CM and purpose of RN CM assessment to patient in room. pt is awake, alert and able to participate in dc planning. Demographics, PCP and Pharmacy verified. Pt states he is generally independent, able to care for self. May be staying another day due to difficulty voiding. No concerns re: dc. PCP: Dr. Chon Banks Specialists: Dr. 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 Transportation: family can drive Patient DC goals: Home DC PLAN: Home with Outpt therapy. Verified first therapy appt is 10/22/18 @ 9 am. (Note it says 10/12 in dc instructions). Changed in DC Appointments. Melissa HERRERAN RN ACM
--- NOTE | 2018-10-18 13:33 | PCA ---
pt in therapy
[2018-10-18] MEDS: Tamsulosin HCl 0.4 MG Capsule 0.8 MG PO (15:08)
[2018-10-18 15:29] VITALS: BP 99/50; PULSE 56; RESP 18; TEMP 36.7; O2SAT 96
--- NOTE | 2018-10-18 16:55 | PCM.PROGNOTE ---
Subjective: Patient was seen and examined today, he has been having problems with urinary retention, after being scanned for 500 cc in his bladder, patient urinated and had approximately 480 cc in the bladder afterwards. I offered to let him go home today with Flomax, patient was afraid to go home-he was worried he might commit with urinary retention and have to be catheterized. I added Flomax to the patient's current medications and talked over the case with orthopedic surgery. - Physical Exam General: Alert, Oriented x3, Cooperative, No apparent distress, Well developed HEENT: Atraumatic, PERRLA, EOMI, Normocephalic Neck: Supple, Trachea Midline, Thyroid Normal Size and Texture Lungs: Clear to auscultation, Normal air movement, No rhonchi, No wheeze, No rales Cardiovascular: Regular rate, Regular Rhythm, Normal S1, Normal S2, No murmurs, No Ectopic Activity Abdomen: Bowel Sounds Present, Soft, Non Tender, Non-Distended Extremities: No clubbing, No cyanosis, No edema, Capillary Refill Less than 3 Seconds Skin: No rashes, No breakdown Musculoskeletal: No Tenderness to Palpation of Joints or Extremities Neurological: Cranial nerves II-XII grossly intact, Neuro grossly intact, Sensory exam intact to light touch and pain, Coordination normal Psych/Mental Status: Normal Affect, Appropriate, Alert and oriented to time, place, person, mood and affect Vital Signs Temp Pulse Resp BP Pulse Ox 98.1 F 56 L 18 99/50 L 96 10/18/18 15:29 10/18/18 15:29 10/18/18 15:29 10/18/18 15:29 10/18/18 15:29 Oxygen Flow Rate (L/min) 2 Oxygen Delivery Method Room Air Weight: 91.4 kg Body Mass Index (BMI) 24.5 Finger Stick Blood Glucose 152 Intake and Output for Last 24 Hours 10/16/18 10/17/18 10/18/18 23:59 23:59 23:59 Intake Total 2500 / 2500 5828 / 5828 Output Total 1750 / 1750 Balance 2500 / 2500 4078 / 4078 Laboratory Tests Past 24 Hrs 10/18/18 10/18/18 04:56 04:56 WBC 13.6 H RBC 3.41 L Hgb 11.5 L Hct 34.5 L MCV 101.2 H MCH 33.7 H MCHC 33.3 RDW Std Deviation 48.2 H RDW Coeff of Elizabeth 12.9 Plt Count 140 L MPV 10.8 Sodium 136 Potassium 4.5 Chloride 101 Carbon Dioxide 29.0 Anion Gap 6 BUN 15 Creatinine 1.12 Estim Creat Clear Calc 75.35 Est GFR (MDRD) Af Amer 83 Est GFR (MDRD) Non-Af 69 BUN/Creatinine Ratio 13.4 Glucose 118 H Calcium 7.7 L Medical Necessity - Tobacco Use Smoking Status: Never smoker Assessment/Plan All Active Problems (Last Reviewed 10/16/18 @ 11:39 by Humera Pelletier) Bilateral hearing loss due to cerumen impaction (Resolved) #1 coronary artery disease-stable at this time #2 urinary retention from probable BPH-patient was placed on Flomax 0.8 mg daily, we will reevaluate the patient tomorrow #3 hyperlipidemia-continue present medication #4 postop left direct anterior total hip replacement-postop day #1, continue PT OT Code Visit Inpatient E&M: 41436 [facility] Hosp L2
--- NOTE | 2018-10-18 18:40 | NURSING ---
prescriptions found in chart. pt called and notified. pt wants to come pick them up tomorrow. left at [facility] nurses station.
== END 2018-10-18 17:52 | disposition home or self-care (01) | DRG 470 ==
LOC: ACINP 08:15 → MS3 13:13
PROVIDERS: Admitting Provider Specialist; Family Provider Family Medicine; PCP Family Medicine; Referring Provider Specialist; Visit Provider Internal Medicine
PROC: 0SRB0JA Replacement of Left Hip Joint with Synthetic Substitute, Uncemented, Open Approach (ICD-10-PCS; CPT 27284; principal; 2018-10-17 09:50)
DX: M16.0 Bilateral primary osteoarthritis of hip (principal); E78.00 Pure hypercholesterolemia, unspecified; E03.9 Hypothyroidism, unspecified; E78.5 Hyperlipidemia, unspecified; I25.10 Atherosclerotic heart disease of native coronary artery without angina pectoris; I25.2 Old myocardial infarction; Z95.5 Presence of coronary angioplasty implant and graft; R33.9 Retention of urine, unspecified
CPT/HCPCS: 36415; 73501; 73502; 76000; 80048; 82962; 84443; 85025; 85027; 87081; 93005; 97110; 97162; 97166; 97530; 99251; C1713; C1776; J7120; A4216; G0463; J2405

== ENCOUNTER → 2018-10-31 | Outpatient (CLI) | payer MEDICARE, SELFPAY ==
[2018-10-17 14:45] VITALS: BMI 24.5
[2018-10-31 12:30] LABS: Color, Urine Yellow (Yellow); Glucose, Dipstick Normal (Normal); Ketone-Dipstick Negative (Negative); Leukocyte Esterase-Dipstick Negative /ul (Negative); Nitrite-Dipstick Negative (Negative); Occult Blood-Urine 10 /ul (Negative); Protein-Dipstick Negative (Negative); Specific Gravity, Urine 1.005 (1.002-1.030); Urine Bilirubin Dipstick Negative (Negative); Urine Clarity Clear (Clear); Urine Urobilinogen Normal (Normal)
== END | disposition home or self-care (01) ==
LOC: LAB 11:53
PROVIDERS: Family Provider Family Medicine; PCP Family Medicine; Referring Provider Physician Assistant Surgical; Visit Provider Physician Assistant Surgical
DX: N39.0 Urinary tract infection, site not specified (principal); Z96.642 Presence of left artificial hip joint
CPT/HCPCS: 81002

== ENCOUNTER → 2018-11-01 | Outpatient (CLI) | payer MEDICARE, SELFPAY ==
[2018-11-01 10:04] VITALS: BMI 24.8
[2018-11-01 12:15] LABS: Absolute Lymphocyte Count 0.97 X10^3/uL (0.83-4.51); Absolute Neutrophil Count 4.9 X10^3/uL (2.0-7.7); Basophil# 0.03 X10^3/uL; Basophil% 0.5 % (0-1); Eosinophil# 0.07 X10^3/uL; Eosinophils% 1.1 % (0-5); Hematocrit 41.1 % (40-54); Hemoglobin 13.1 g/dL (13.0-16.5); Lymphocyte # 0.97 X10^3/ul (4.0); Lymphocyte % 14.6 % (19-41); Mean Corp Hgb Conc 31.9 g/dL (32-36); Mean Corpuscular Hgb 32.8 pg (27.0-32.0); Monocyte# 0.64 X10^3/uL; Monocyte% 9.7 % (0-10); NRBC Flagged by Analyzer 0 % (0-5); Neutrophil % 73.8 % (47-70); Platelet Count 273 K/mm3 (150-450); RBC Distribution Width CV 13.3 % (11.6-14.6); RBC Distribution Width SD 50.7 fl (35.1-43.9); Red Blood Count 3.99 M/mm3 (4.6-6.2); White Blood Count 6.6 K/mm3 (4.4-11.0)
[2018-11-01 12:55] LABS: PSA,Total - Annual Screen 1.63 ng/mL (0.00-4.00)
== END | disposition home or self-care (01) ==
LOC: BIMLAB 10:35
PROVIDERS: Family Provider Family Medicine; PCP Family Medicine; Visit Provider Nurse Practitioner Family
DX: R30.0 Dysuria (principal); Z12.5 Encounter for screening for malignant neoplasm of prostate
CPT/HCPCS: 36415; 84153; 85025; 87086; G0103

== ENCOUNTER 2018-12-26 05:23 | Inpatient (IN) | payer MEDICARE, SELFPAY ==
[2018-11-15 10:37] VITALS: BMI 24.8
[2018-12-19 11:18] VITALS: BP 109/63; PULSE 60; RESP 16; TEMP 36.8; O2SAT 96; BMI 25.9
[2018-12-19 12:23] LABS: Absolute Lymphocyte Count 0.88 X10^3/uL (0.83-4.51); Absolute Neutrophil Count 3.9 X10^3/uL (2.0-7.7); Basophil# 0.02 X10^3/uL; Basophil% 0.4 % (0-1); Eosinophil# 0.15 X10^3/uL; Eosinophils% 2.7 % (0-5); Hematocrit 42.6 % (40-54); Hemoglobin 13.9 g/dL (13.0-16.5); Lymphocyte # 0.88 X10^3/ul (4.0); Lymphocyte % 15.9 % (19-41); Mean Corp Hgb Conc 32.6 g/dL (32-36); Mean Corpuscular Hgb 32.7 pg (27.0-32.0); Mean Corpuscular Volume 100.2 fL (80-94); Monocyte# 0.54 X10^3/uL; Monocyte% 9.8 % (0-10); NRBC Flagged by Analyzer 0 % (0-5); Neutrophil # 3.92 X10^3/uL (2.7-7.7); Neutrophil % 70.8 % (47-70); Platelet Count 149 K/mm3 (150-450); RBC Distribution Width CV 13.2 % (11.6-14.6); RBC Distribution Width SD 48.8 fl (35.1-43.9); Red Blood Count 4.25 M/mm3 (4.6-6.2); White Blood Count 5.5 K/mm3 (4.4-11.0)
[2018-12-19 12:31] LABS: Anion Gap 5 (5-15); BUN 16 mg/dL (7-18); Calcium,Total 8.7 mg/dL (8.5-10.1); Chloride 106 mmol/L (98-107); EST Glomerular Filtration Rate 78 mL/min (>60); Est Glom Filt Rate - Afr Amer 95 mL/min (>60); Estimated Creatinine Clearance 84.39 ml/min; Glucose 98 mg/dL (74-106); Potassium 4.3 mmol/L (3.5-5.1); Sodium Level 138 mmol/L (136-145); Thyroid Stim Hormone (TSH) 4.16 uIU/mL (0.358-3.74)
--- NOTE | 2018-12-20 10:34 | HP.PCM_ITS ---
History and Physical Patient Name: Jericho Wagoner : 1950 From: TRINH BURGOS PA-C DATE OF SURGERY: 12/26/2018 SCHEDULED PROCEDURE: Right total hip arthroplasty HISTORY OF PRESENT ILLNESS: Preoperative history and physical exam was performed on December 19, 2018. This is a 68-year-old male who has been having ongoing pain in bilateral hips for the past couple years. Patient recently underwent a left total hip arthroplasty by Dr. Darinel Awan on October 17, 2018. He is doing well from this procedure. Patient continues to have ongoing pain in his right hip. It has progressively become worse. Pain can reach a size a 10/10 with activity. This pain has been intermittent, aching, sharp, stabbing. Patient has been unable to ride his motorcycle. He has increased pain going up and downstairs and riding in a car. He has difficult time putting on socks on his right lower extremity. He has tried oral medications in the past including meloxicam with minimal relief. He does complain of right groin pain. He has a medical history pertinent for previous heart stents in 2006. He has had a previous heart attack. We have obtain surgical clearance from the hotel room attendant as well as primary care physician. After failing conservative measures and discussing treatment options with Dr. Darinel Awan, the patient does wish to proceed with a right total hip arthroplasty. He currently denies any chest pain, shortness of breath, fevers chills, recent infections. REVIEW OF SYSTEMS: ROS: Const: Reports difficulty sleeping, but denies anorexia, change in appetite, fever and weight change. CV: Reports peripheral vascular disease, but denies chest pain, heart murmur and irregular heartbeat. Resp: Denies asthma, cough, pneumonia, sleep apnea, shortness of breath, tuberculosis and wheezing. GI: Reports heartburn, but denies constipation, diarrhea, nausea, rectal itching, bloody stools and vomiting. : Denies incontinence. Musculo: Reports pain, morning stiffness, trouble walking and weakness, but denies leg swelling. Skin: Denies Raynaud's, history of shingles and tattoo. Neuro: Reports numbness/tingling but denies ambulatory dysfunction, dizziness and tremor. Psych: Reports anxiety, but denies depression, insomnia, mental illness and stress. Zeeshan/Lymph: Denies anemia, bleeding/bruising tendency and past transfusion. Reviewed and updated. PAST MEDICAL HISTORY: Advance Care Plan: Other Directive, POA Effective Date: 08/16/2018 Other Directive, LIVING WILL Effective Date: 08/16/2018 PMH: Medical Problems: Heart Attack - history of Hypercholesterolemia, Thyroid Disease, Restless Leg Accidents: Fracture - left wrist as a child Sports Related Injury - right jean laceration 70 stitches RT Thumb, RT Arm LT THR - (10/17/2018) [email or web address] Surgical Hx: heart stents - (2004) total of 4 stents AND 2006 Tonsillectomy, RT Thumb Stitches, Heart Ablation, RT Arm, Nasal Anesthesia Complications: None Assistive Devices: Glasses Reviewed and updated. 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 Personal Habits: Cigarette Use: Never.Smokeless Tobacco: Never Used Smokeless Tobacco - (09/12/2018).E-Cigarette Use: Never used.Alcohol: Denies use.Drug Use: Denies Use.Enjoy Exercising: Exercises 1-3 X/Week. Reviewed, no changes. VITALS: Ht: 74.5 Wt: 213lb Wt k.617 BMI: 27.0 BP: 117/70 Pulse: 58 Resp: 24 T: 96.6 T: 35.9C ALLERGIES: No Known Drug Allergy MEDICATIONS: Potassium 10 Meq 1 po qday, Aspir-Low 81 mg 1 po qd, [place]-3 Fish Oil 1000 mg 1 po qd, Metoprolol Succinate ER 25 mg 1 PO daily, Co Q10 100 mg 1 by mouth every day, Levothyroxine 88mcg 1 PO daily, Lipitor 20 mg 1 by mouth every day, Afrin 12 Hour 0.05 % prn, Tylenol Extra Strength 500 mg 2 by mouth every 8 hours, Zoloft 25 mg once A day, Gabapentin 100 mg 1 by mouth three times a day, Multiple Vitamins-Iron 1 tab PO daily PRE-OP EXAM: General appearance:NORMAL Other: Eyes: Conjunctivae and lids: NORMAL Pupils: ERR Ears, Nose, Mouth, and Throat: NORMAL Other: Inspection of lips, teeth and gums: NORMAL Other: Neck: Examination of neck: no masses noted. Respiratory: Assessment of respiratory effort: NORMAL Other: Auscultation of lungs: clear to auscultation no wheezes, rhonchi or rales. Cardiovascular: Auscultation of heart: regular rate and rhythm, no murmurs, gallops or rubs. Gastrointestinal: Exam of abdomen: soft, nontender, nondistended bowel sounds present. PHYSICAL EXAMINATION: On exam of the right hip he does walk with an antalgic gait. Patient has obligatory external rotation with flexion. Right hip flexion 65, internal rotation neutral, external rotation 20. Patient's left hip incision healing well without erythema or signs of infection. No pain on range of motion of the left hip. Increased pain with range of motion of the right hip. Sensation intact to light touch. IMAGING STUDIES: X-rays of the right hip shows severe osteoarthritis with joint space narrowing, subchondral sclerosis, osteophyte formation and pistol ab initio etl developer deformity of the femoral head and neck IMPRESSION: 1. Right hip severe osteoarthritis 2. Presence of left total hip arthroplasty 3. Hypercholesterolemia 4. History of heart attack 5. History of heart stents PLAN: Dr. Darinel Awan did discuss and review with the patient all treatment options including surgical versus nonsurgical options. Patient does wish to proceed with the above-stated procedure. Potential risks, benefits, and complications of the procedure were discussed in detail including but not limited to , infection, nerve and blood vessel damage, persistent pain, numbness, tingling, paresthesias, blood clot, pulmonary embolism, and requirement for possible further surgery. The patient expressed full understanding and has no further questions for the doctor. Patient does agree to proceed with the above-stated procedure and has signed the surgery consent form. This dictation was created using voice recognition software. Phonetic and/or grammatical errors may exist.. ___ I have re-examined the patient. There are no clinical changes since date of exam. ___ See progress notes for changes. ___ Dictated on admission Date: Time: Signature:
[2018-12-26] VITALS (12 sets, daily range): BP systolic 113–129; BP diastolic 58–71; PULSE 52–63; RESP 16–18; TEMP 35.8–36.9; O2SAT 95–100; BMI 25.9
[2018-12-26] MEDS: Gabapentin 600 MG Tablet PO (06:10)
[2018-12-26] MEDS: Scopolamine 1mg/72hr Patch 1 PATCH TRANSDERM. (06:10)
[2018-12-26] MEDS: Acetaminophen 500 MG Tablet 1000 MG PO ×3 (06:10→22:59)
[2018-12-26] MEDS: Magnesium Sulfate 4gm/100mL 4 GM/100 ML IV.SOLN. IV (06:13)
[2018-12-26] MEDS: Lactated Ringers 1,000 ML 100 ML IV (06:15)
[2018-12-26 06:55] LABS: Bedside Glucose 100 mg/dL (70-110)
[2018-12-26] MEDS: Cefazolin 2 GM in 0.9% Normal Saline 100 ML IV (07:22)
--- NOTE | 2018-12-26 07:30 | RAD_ITS ---
STUDY: X-RAY - PELVIS AND RIGHT HIP REASON FOR EXAM: Male, 68 years old. Anterior right hip replacement. TECHNIQUE: 1 views of the pelvis and hip. COMPARISON: None. FINDINGS: Intraoperative imaging provided for right anterior total hip replacement. RAD/Hip 1 view with Pelvis IMPRESSION: Intraoperative imaging provided for right anterior total hip replacement. There is good alignment. Electronically Signed: Mahesh Murguia, at 11:27 EDT , Service support ,
[2018-12-26] MEDS: dexAMETHasone 10 MG/ML Vial IV (07:43)
--- NOTE | 2018-12-26 08:47 | PCM.OPRPT ---
Report of Operation Date of Procedure: 12/26/18 Pre-Operative Diagnosis: Right hip primary osteoarthritis Post-Operative Diagnosis: Right hip primary osteoarthritis Surgery/Procedure Performed:: Right minimally invasive direct anterior hip replacement Description of Surgical Findings:: Stable hip with equal leg lengths statistics tutor: Danika Escobar Type of Anesthesia:: Spinal Anesthesiologist: Davian Starr Special Medications: 2 g Ancef, 1 g TXA at incision, 1 g TXA closure, 10 mg Decadron, joint cocktail (5 mg Duramorph, 30 mL of 0.5% Ropivicaine, 1000 units of epinephrine, 30 mg of Toradol) Estimated Blood Loss (mL): 150 mL Fluids Replaced: 1400 mL crystalloid Description of Procedure: Components used: 1. Accolade 2 [place] femoral stem size 8 127? 2. Ofelia trident 2 acetabular shell size 62 mm 3. Ofelia X3 polyethylene G 4. Ofelia Biolox delta 36mm, -5mm femoral head Brief history operative indications: 68 yo m who failed conservative measures for their hip osteoarthritis. X-rays were consistent with osteoarthritis including joint space narrowing, osteophyte formation and subchondral cysts. Total hip replacement was discussed with the patient with risks and benefits including but not limited to blood loss, DVTs, PEs, neurovascular damage, dislocation, general risks of anesthesia including loss of life. Patient demonstrated an understanding medical clearance is obtained the patient was consented for surgery. Procedure: On the date of procedure the patient's R hip was marked in the preoperative area. Patient was then taken back to the operating room where anesthesia assumed control of the C-spine and airway and administered anesthetic. Patient was transferred to the operating table and placed in the supine position. The hips were placed at the break of the bed and a sacral bump was placed. The R lower extremity was then prepped out in a sterile fashion using chlorhexidine while the surgeon scrubbed. The PA was vital in the positioning of the patient. Upon reentering the room the R lower extremity was draped in the standard orthopedic fashion and the incision was marked. A timeout was called and everyone agreed upon the side, the site, the procedure be performed, antibody given, and patient's identity. At this time incision was made through skin, subcutaneous tissue, and fat down to fascia. The fascia was then incised and the TFL was retracted laterally. A retractor was placed on the lateral border of the femoral neck. Attention was directed to the inferior portion of the approach and all crossing vessels were identified and appropriately coagulated. A retractor was then placed on the medial portion of the femoral neck. The anterior capsule was then cleared of all soft tissue and then H shaped capsulotomy was made. The retractors were then placed inside the capsule. The femoral neck was identified and a cleanup cut was made. At this time a power corkscrew was used to remove the femoral head. Attention was then turned toward the acetabulum where the soft tissues were appropriately retracted and the acetabulum was sequentially reamed to 62 mm. A 62 mm cup was then selected and impacted into place. Acetabular liner was impacted into place and locking mechanism was verified. The position of the acetabular cup was then verified under live fluoroscopy. Attention was then turned to the femur. Soft tissue releases on the medial and lateral femoral neck were appropriately done, the leg was externally rotated and lateralized. A Navarro retractor was placed medially and proximally to the greater trochanter this allowed appropriate visualization and exposure of the femoral canal. Rongeour was then used to remove excess lateral bone. A canal finder and entry broach were used to open the proximal canal. Once we verified we were down the femoral canal we subsequently broached up to a size 8 femur. The appropriate neck was placed in the previously selected head was trialed with a -5 mm neck. Traction was pulled and the hip was reduced with internal rotation. Once it was appropriately reduced and stability was checked. There was minimal shuck, equal leg lengths and appropriate stability with hyperextension and external rotation as well as with 90? flexion and internal rotation. Fluoroscopy was then also used to verify the position of the components and leg lengths using the contralateral side for comparison. The trial components were then dislocated the proximal femur was again exposed and the components were removed from the wound. The final components were verified and opened. The wound was copiously irrigated out with normal saline. The acetabulum was checked for any residual debris. The final components were placed and impacted. Traction and internal rotation were again used to reduce the hip. After adequate reduction the hip remained stable with appropriate leg lengths. The final components were once again checked with live fluoroscopy and were found to be satisfactory. The wound was then copiously irrigated with normal saline once more, and hemostasis was obtained. Closure was then done using #1 Vicryl runner to close the fascia. A 2-0 vicryl interuppted sutures were used to close the subcutaneous skin. A 3-0 Monocryl and Steri-Strips were used for final skin closure. A Silverlon dressing was placed. Patient was awakened by anesthesia and transferred to the [facility]. Patient was then transferred to the PACU for recovery. Postoperative plan: Patient will get 24 hours postop antibiotics. Patient will get in-house physical therapy and will be weight-bear as tolerated. Patient will follow up in office in 2 weeks for a wound check and x-rays. Grafts/Implants Used: Ofelia - Complications No intraoperative complications - Admit VTE Documentation VTE Present on Admission: No VTE Mechan Device Prophylaxis: SCD's, Thigh High CARLTON Hose VTE Pharm Prophylaxis ordered?: Yes
[2018-12-26] MEDS: Lactated Ringers 1,000 ML 999 ML IV (09:38)
--- NOTE | 2018-12-26 09:47 | RAD_ITS ---
STUDY: X-RAY - PELVIS AND RIGHT HIP REASON FOR EXAM: Male, 68 years old. Right anterior hip replacement. TECHNIQUE: 2 views of the pelvis and hip. COMPARISON: None. FINDINGS: The patient is status post right anterior total hip replacement. There is good alignment. Postoperative soft tissue changes. RAD/Hip Min 2 Views (Portable) IMPRESSION: Status post right anterior hip replacement. There is good alignment. Postoperative soft tissue changes. Electronically Signed: Mahesh Murguia, at 12:44 EDT , Service support ,
[2018-12-26] MEDS: Lactated Ringers 1,000 ML 125 ML IV ×2 (10:18→18:08)
--- NOTE | 2018-12-26 11:16 | CASEMGMT ---
RN CM Assessment Introduced role of RN CM to patient and patient Diamond at bedside. Patient currently looking at lunch menu and getting ready to order, consents to this continuity writer assessment and s/w while choosing meal.? Patient is alert, oriented and able?to participate in RN CM Assessment. ?Care providers, pharmacy, and demographics verified. Presentation: Rt Total Hip Anterior Approach Procedure: Rt Minimally invasive direct anterior Hip replacement Re-Admit: No Barriers/Issues: None PCP: Chon Banks Specialists: Ortho- Dr Awan, Cardio w/[facility]- Dr Finney, Cardio Surg for Cardiac Ablation w/[facility]- Dr Langford Preferred Pharmacy: [facility] Insurance: [employer] [facility] PPO Rx Benefit:?Yes ?LNOK: Diamond Wagoner LW/HPOA: States has a LW and located in car- advised to bring in to scan on file, Not sure if has HPOA and per patient two of his sons are doctors, CM made aware if does not have HPOA and wants information or to complete that this hospital can do that and either to notify staff or can come as an Outpatient. Living Arrangements:? Lives with in a SS home, 2 steps to enter home. ADL?s: Normally Independent with ambulation and ADLs. used to assist with putting on socks but patient has a sock assistance device and now can do it himself. Transportation: Both patient and drive, denies any transportation issues. DME: Walker and cane that patient can use. Per previous Hip replacement- documented has a TSR. HHC: None SNF: None Goal: Home with Outpatient PT- states that he is already set up with [facility]. Denies any additional needs, issues, concerns or questions with DC planning at this time. DC PLAN: Home with Outpatient PT. CONSUELO Coello
[2018-12-26] MEDS: Pantoprazole Sodium 20 MG Tablet PO (13:40)
[2018-12-26] MEDS: Metoprolol(XL)Succ 25 MG Tablet PO (13:40)
[2018-12-26] MEDS: Gabapentin 100 MG Capsule PO ×2 (13:40→18:08)
[2018-12-26] MEDS: Senna/Docusate Sodium 1 Tablet 2 TABLET PO ×2 (13:40→22:59)
[2018-12-26] MEDS: Famotidine 20 MG Tablet PO (13:40)
[2018-12-26] MEDS: Sertraline 50 MG Tablet 25 MG PO (13:41)
[2018-12-26] MEDS: Ensure Surgery 237 ML LIQUID PO ×2 (15:52→18:08)
[2018-12-26] MEDS: Cefazolin 1 GM/50 ML BAG IV ×2 (15:58→23:00)
[2018-12-26] MEDS: Aspirin 81 MG TAB.CHEW PO (18:08)
--- NOTE | 2018-12-26 19:45 | NURSING ---
st cathed for 1325ml
--- NOTE | 2018-12-26 19:46 | NURSING ---
st cathed for 1200ml
[2018-12-26] MEDS: Atorvastatin Calcium 20 MG Tablet PO (22:59)
[2018-12-27] MEDS: Levothyroxine 88 MCG Tablet PO (05:04)
[2018-12-27] MEDS: Acetaminophen 500 MG Tablet 1000 MG PO (05:04)
[2018-12-27 05:07] VITALS: BP 123/69; PULSE 68; RESP 18; TEMP 37.3; O2SAT 93
[2018-12-27 05:38] LABS: Hematocrit 35.1 % (40-54); Hemoglobin 11.2 g/dL (13.0-16.5); Mean Corp Hgb Conc 31.9 g/dL (32-36); Mean Corpuscular Hgb 31.9 pg (27.0-32.0); Mean Platelet Vol. 10.9 fl (6.2-12.0); Platelet Count 123 K/mm3 (150-450); RBC Distribution Width SD 47.5 fl (35.1-43.9); Red Blood Count 3.51 M/mm3 (4.6-6.2); White Blood Count 14.8 K/mm3 (4.4-11.0)
[2018-12-27 05:57] LABS: Anion Gap 5 (5-15); BUN 25 mg/dL (7-18); BUN/Creat Ratio 24.8 RATIO (10-20); Calcium,Total 8.2 mg/dL (8.5-10.1); Chloride 108 mmol/L (98-107); Creatinine, Serum 1.01 mg/dL (0.70-1.30); EST Glomerular Filtration Rate 77 mL/min (>60); Est Glom Filt Rate - Afr Amer 94 mL/min (>60); Estimated Creatinine Clearance 83.55 ml/min; Glucose 109 mg/dL (74-106); Potassium 4.1 mmol/L (3.5-5.1); Sodium Level 142 mmol/L (136-145)
[2018-12-27] MEDS: Gabapentin 100 MG Capsule PO ×2 (07:43→11:29)
[2018-12-27] MEDS: Meloxicam 7.5 MG Tablet PO (07:43)
[2018-12-27] MEDS: Sertraline 50 MG Tablet 25 MG PO (07:43)
[2018-12-27] MEDS: Senna/Docusate Sodium 1 Tablet 2 TABLET PO (07:43)
[2018-12-27] MEDS: Aspirin 81 MG TAB.CHEW PO (07:43)
[2018-12-27 07:44] VITALS: PULSE 68
[2018-12-27] MEDS: Pantoprazole Sodium 20 MG Tablet PO (07:44)
[2018-12-27] MEDS: Metoprolol(XL)Succ 25 MG Tablet PO (07:44)
[2018-12-27] MEDS: Famotidine 20 MG Tablet PO (07:45)
[2018-12-27 07:47] VITALS: BP 106/52; PULSE 68; RESP 16; TEMP 36.6; O2SAT 98
[2018-12-27] MEDS: Ensure Surgery 237 ML LIQUID PO ×2 (07:47→11:29)
--- NOTE | 2018-12-27 08:42 | PN.ORTHO_ITS ---
Subjective: The patient was sitting in bed upon examination. Patient denies any chest pain, shortness of breath, dizziness, lightheadedness, nausea or vomiting, or calf pain. Pain is controlled on medications. No adverse overnight events. Overall patient is doing very well. He states the pain is very well controlled. He is ready to go home today. Objective: Vital signs stable and afebrile. Patient is able to plantarflex and dorsiflex actively. Sensation is intact to light touch to saphenous, sural, superficial and deep pe roneal, and tibial distribution. Dressing is clean dry and intact. Negative Homans bilaterally, negative signs and symptoms of DVT. - Physical Exam General: Alert, Oriented x3, Cooperative, No apparent distress Vital Signs Temp Pulse Resp BP Pulse Ox 97.9 F 68 16 106/52 L 98 12/27/18 07:47 12/27/18 07:47 12/27/18 07:47 12/27/18 07:47 12/27/18 07:47 Oxygen Flow Rate (L/min) 6 Oxygen Delivery Method Room Air Weight: 96.8 kg Body Mass Index (BMI) 25.9 Finger Stick Blood Glucose 152 Intake and Output for Last 24 Hours 12/25/18 12/26/18 12/27/18 23:59 23:59 23:59 Intake Total 7526.25 / 7526.25 1654.5 / 1654.5 Output Total 3500 / 3500 1100 / 1100 Balance 4026.25 / 4026.25 554.5 / 554.5 Laboratory Tests Past 24 Hrs 12/27/18 12/27/18 05:04 05:04 WBC 14.8 H RBC 3.51 L Hgb 11.2 L Hct 35.1 L MCV 100.0 H MCH 31.9 MCHC 31.9 L RDW Std Deviation 47.5 H RDW Coeff of Elizabeth 13.0 Plt Count 123 L MPV 10.9 Sodium 142 Potassium 4.1 Chloride 108 H Carbon Dioxide 29.0 Anion Gap 5 BUN 25 H Creatinine 1.01 Estim Creat Clear Calc 83.55 Est GFR (MDRD) Af Amer 94 Est GFR (MDRD) Non-Af 77 BUN/Creatinine Ratio 24.8 H Glucose 109 H Calcium 8.2 L Medical Necessity - Tobacco Use Smoking Status: Never smoker Tobacco Use: Non-smoker Assessment/Plan All Active Problems (Last Reviewed 11/01/18 @ 10:01 by Humera Pelletier) Bilateral hearing loss due to cerumen impaction (Resolved) 1. S/P right direct anterior total hip arthroplasty POD #1 2. Continue Pain Medications: Tylenol and OxyIR 3. DVT Prophylaxis: Aspirin 81 mg twice daily for 4 weeks postoperatively 4. PT/OT: Weightbearing as tolerated 5. H & H: 11.2/35.1, asymptomatic 6. Reactive leukocytosis: Currently 14.8, afebrile. Patient did receive Decadron intraoperatively 7. Encouraged Incentive Spirometry 8. Disposition: Orthopedically stable, plan will be for discharge home today. Patient already has Tylenol, oxycodone, aspirin, meloxicam, stool softener at home. Overall patient is doing very well. Prescription for famotidine will be given. Patient will follow-up per postop instructions. Patient does have outpatient physical therapy established.
--- NOTE | 2018-12-27 08:48 | PCM.DC.THR ---
Discharge Diet: No Restrictions Discharge Activity: May Not Drive - while taking narcotic pain medications. May shower in (days): 1 - Turn dressing away from water Ice area for (Minutes): 20 - Every 1-2 hours while awake Weight Bearing Status: Weight bearing as tolerated Elevate: Operative Extremity Additional Activity Instructions:: Wear elastic stockings for 2 weeks. DO NOT use alcohol with narcotic pain medication. DO NOT make important decisions while taking narcotic medication. If you have problems with taking your medication (rash, itching, nausea, etc.) call the office at once. Call your doctor if your incision/area has: Increased Pain/ Swelling, Increased Redness, Foul Smelling Discharge Call your doctor if you observe: Fever of 101 or Higher Remove Dressing in (days):: 4 - Okay to remove on December 31, 2018 Additional Instructions: Follow orthopedic postop instructions Allergies/Adverse Reactions: Allergies No Known Allergies Allergy (Verified 12/26/18 05:48) Medications to take at Discharge potassium chloride ER 10 mEq capsule,extended release 10 meq PO QDAY 11/01/17 atorvastatin 20 mg tablet 20 mg PO QHS 08/23/18 Levothyroxine Sodium 1 tab PO DAILY 09/12/18 Metoprolol Succinate 25 mg PO DAILY 09/12/18 Gabapentin [Neurontin] 100 mg PO TID 12/19/18 Multivit with Iron,Minerals [Complete Senior] 1 ea PO DAILY 12/19/18 [place]-3 Fatty Acids/Fish Oil [[place] 3 1,000 mg Softgel] 1 ea PO DAILY 12/19/18 Omeprazole [Prilosec] 20 mg PO DAILY 12/19/18 Oxymetazoline HCl [Afrin] 30 ml NS PRN PRN 12/19/18 Sertraline HCl 25 mg PO DAILY 12/19/18 Ubidecarenone [Coq-10] 100 mg PO DAILY 12/19/18 Acetaminophen [Tylenol] 1,000 mg PO Q8 #14 tablet 12/27/18 Aspirin [Aspirin, Baby] 81 mg PO BIDCM 30 Days tab.chew 12/27/18 Famotidine [Pepcid] 20 mg PO DAILY #30 tab 12/27/18 Meloxicam [Mobic] 7.5 mg PO BID tablet 12/27/18 Oxycodone [Oxyir] 5 mg PO Q4H PRN PRN 7 Days tablet 12/27/18 Senna/Docusate Sodium [Senokot-S] 2 tablet PO BID 2 Days tablet 12/27/18 The following prescriptions were given: Famotidine [Pepcid] 20 mg PO DAILY #30 tab Prescription Printed Primary Care Physician: Chon Banks DO [Primary Care Provider] - Test Results: Test results from this visit will be discussed in further detail at your follow-up appointment, if applicable. Please Follow Up With: [facility] When: 12/31/18 @ 10:00 am Please Follow Up With: Beltran Gotti PA-C When: 01/09/19 @ 10:30 am
[2018-12-27 11:30] VITALS: BP 111/62; PULSE 57; RESP 16; TEMP 36.4; O2SAT 96
--- NOTE | 2018-12-27 13:16 | CASEMGMT ---
SW spoke w/pt and about LW/POA forms. Pt had brought them with him. SW copied forms, placed copies on chart and gave pt's back the originals. JESSICA Perrin
== END 2018-12-27 13:03 | disposition home or self-care (01) | DRG 470 ==
LOC: ACINP 05:24 → MS3 06:07
PROVIDERS: Admitting Provider Specialist; Family Provider Family Medicine; PCP Family Medicine; Referring Provider Specialist; Visit Provider Specialist
PROC: 0SRB04A Replacement of Left Hip Joint with Ceramic on Polyethylene Synthetic Substitute, Uncemented, Open Approach (ICD-10-PCS; CPT 27284; principal; 2018-12-26 07:05)
DX: M16.11 Unilateral primary osteoarthritis, right hip (principal); Z96.642 Presence of left artificial hip joint; Z95.5 Presence of coronary angioplasty implant and graft; I25.2 Old myocardial infarction; E78.00 Pure hypercholesterolemia, unspecified
CPT/HCPCS: 36415; 73501; 73502; 76000; 80048; 82962; 84443; 85025; 85027; 87081; 97110; 97162; 97166; 97530; 99251; C1776; J7120; G0463

== ENCOUNTER → 2019-09-24 14:37 | Outpatient (CLI) | payer MEDICARE, SELFPAY ==
[2019-09-24 14:12] VITALS: BMI 25.9
[2019-09-24 17:16] LABS: T4 Free Direct 0.89 ng/dL (0.76-1.46); Thyroid Stim Hormone (TSH) 3.47 uIU/mL (0.358-3.74)
== END ==
PROVIDERS: PCP Family Medicine; Referring Provider Family Medicine; Visit Provider Family Medicine
DX: I49.9 Cardiac arrhythmia, unspecified (principal)
CPT/HCPCS: 36415; 84439; 84443

== ENCOUNTER → 2020-01-06 | Outpatient (CLI) | payer MEDICARE, SELFPAY ==
[2019-09-24 14:12] VITALS: BMI 25.9
== END | disposition home or self-care (01) ==
LOC: LABSPEC 13:02
PROVIDERS: PCP Family Medicine; Referring Provider Otolaryngology; Visit Provider Otolaryngology
DX: J32.0 Chronic maxillary sinusitis (principal)
CPT/HCPCS: 87070; 87077; 87186; 87205

== ENCOUNTER → 2020-01-16 17:50 | Outpatient (CLI) | payer MEDICARE, SELFPAY ==
[2019-09-24 14:12] VITALS: BMI 25.9
--- NOTE | 2020-01-16 17:58 | CT_ITS ---
HISTORY: RT CHRONIC MAXILLARY SINUSITISPRIOR SINUS SURGERY 12 YRS AGO COMPARISON: None. TECHNIQUE: Helical CT axial images are obtained from the base of skull through the paranasal sinuses without IV contrast. Multiplanar reconstruction. A radiation dose optimization technique was used for this scan. # of images incl. paperwork: [id number] FINDINGS: SINUSES: Diffuse opacification right maxillary sinus with central calcification and probable some degree of inspissated mucus. Severely opacified right ethmoid and right frontal sinuses. The degree of opacification precludes detailed evaluation of postsurgical changes; but nevertheless there does appear to be medial wall antrostomy. Mild mucosal thickening right sphenoid sinus. Left maxillary, ethmoid, sphenoid, and frontal sinuses are clear. No air-fluid levels. Patent left ostiomeatal unit. No abnormal osseous destruction. Opacification of the right nasal cavity. Left nasal cavity is clear. Nasal septum is midline. No suspicious soft tissue mass or bony erosion. OTHER: No acute fracture.Orbit and ocular globe appear intact. The visualized intracranial structures demonstrate no acute abnormality. CT/Sinus/Facial Bone IMPRESSION: 1. Diffuse opacification right maxillary sinus with central coarse calcification and areas of probable inspissated mucus. No abnormal bony destruction to suggest an invasive or aggressive infection. Degree of opacification precludes detailed evaluation of history of prior right sinus surgery. Medial wall antrostomy is at least present. 2. Diffuse opacification right frontal and right ethmoid sinus. Mild mucosal thickening right sphenoid sinus. 3. Opacified right nasal cavity. Correlate with direct visualization and histologic diagnosis if warranted. Individualized dose optimization techniques were used for this CT. at 2302 Reported and signed by: Rodolfo Camacho MD Electronically Signed: Rodolfo Camacho MD at 23:01 EDT Tel , Service support ,
== END ==
PROVIDERS: PCP Family Medicine; Referring Provider Otolaryngology; Visit Provider Otolaryngology
DX: J32.0 Chronic maxillary sinusitis (principal)
CPT/HCPCS: 70486

== ENCOUNTER 2020-01-31 08:33 | Day surgery (SDC) | payer MEDICARE, SELFPAY ==
[2019-09-24 14:12] VITALS: BMI 25.9
--- NOTE | 2020-01-31 08:51 | EKG12_ITS ---
Test Reason : PRE OP Blood Pressure : / mmHG Vent. Rate : 058 BPM Atrial Rate : 058 BPM P-R Int : 220 ms QRS Dur : 106 ms QT Int : 446 ms P-R-T Axes : 052 004 035 degrees QTc Int : 437 ms Sinus bradycardia with 1st degree A-V block Inferior infarct , age undetermined Poor R wave progression Abnormal ECG Confirmed by KATELYN TINEO, SATINDER ([id number]), editor producer PARIS ANDREW ([id number]) on 02/03/2020 2:33:44 PM Referred By: Randall Moreno Confirmed By:SATINDER ZEPEDA MD
[2020-01-31 09:11] VITALS: BP 118/69; PULSE 63; RESP 16; TEMP 37; O2SAT 95; BMI 26.9
[2020-01-31] MEDS: Lactated Ringers 1,000 ML 100 ML IV ×2 (09:16→13:48)
[2020-01-31 09:29] LABS: Hematocrit 42.2 % (40-54); Hemoglobin 13.3 g/dL (13.0-16.5); Mean Corp Hgb Conc 31.5 g/dL (32-36); Mean Corpuscular Hgb 31.7 pg (27.0-32.0); Mean Corpuscular Volume 100.5 fL (80-94); Mean Platelet Vol. 10.1 fl (6.2-12.0); Platelet Count 194 K/mm3 (150-450); RBC Distribution Width CV 13.1 % (11.6-14.6); RBC Distribution Width SD 48.7 fl (35.1-43.9); White Blood Count 5.9 K/mm3 (4.4-11.0)
--- NOTE | 2020-01-31 10:30 | ETH_PTH ---
PATIENT: ANISH MENDOZA LOC: [facility] [place] U#:[id number] AGE/SX: 70/M ROOM: RE01/31/[address]: Dr. Randall Moreno MD : [id number] BED: DIS: 01/31/2020 SPEC #: [id number] RECD: 01/31/20 14:44 STATUS: SOUGoyo REQ #: [id number] ROMIE: 01/31/20 10:[address]: Randall Moreno DEPT: SURGICAL PATHOLOGY RECD BY: Mally Shen ENTERED: 02/03/20 08:33 SP TYPE: ETH TISS OTHR DR: Dr. Chon Banks, DO Tissues: Ethmoid sinus, NOS Procedures: Decalcification bone/plaque Special Stain Group I Surgery Specimen Level IV GMS Stain (control) HEADER OPERATION: Endoscopy nasal/sinus, maxillary antrostomy PRE-OP DIAGNOSIS: Sinusitis TISSUE SUBMITTED: Contents of right maxillary and ethmoid sinus MICROSCOPIC DIAGNOSIS Contents of right maxillary and ethmoid sinus: Fragments of respiratory mucosa with moderate acute and chronic inflammation and bone. Special stain for fungi is positive for organisms consistent with aspergillus species; matched control is appropriate. BLAIRE:amy 02/06/20 COMMENT Correlation with clinical findings and appropriate follow up are necessary. MICROSCOPIC DESCRIPTION Slides are reviewed. GROSS DESCRIPTION Received in fixative is one container labeled with the patient's name and designated contents of right maxillary and ethmoid sinus. The specimen consists of multiple fragments of hemorrhagic soft tissue mixed with possible fragments of bone that in aggregate measure 5 x 3 x 0.3 cm. The entire specimen is submitted in two cassettes after decalcification. / BLAIRE:amy 02/03/20 TC:2 CPT: 96030, 32037, 72078
[2020-01-31 10:39] LABS: Anion Gap 3 (5-15); BUN 19 mg/dL (7-18); BUN/Creat Ratio 17.3 RATIO (10-20); Calcium,Total 8.9 mg/dL (8.5-10.1); Chloride 110 mmol/L (98-107); EST Glomerular Filtration Rate 70 mL/min (>60); Est Glom Filt Rate - Afr Amer 85 mL/min (>60); Estimated Creatinine Clearance 74.53 ml/min; Glucose 102 mg/dL (74-106); Potassium 3.9 mmol/L (3.5-5.1); Sodium Level 140 mmol/L (136-145); Thyroid Stim Hormone (TSH) 4.59 uIU/mL (0.358-3.74)
[2020-01-31] MEDS: Oxymetazoline 0.05% 1 SPRAY SPRAY.BTL 15 SPRAY (13:05)
--- NOTE | 2020-01-31 13:26 | DCINST_ITS ---
You will use the following diet at home:: No restrictions, Regular Discharge Activity: Return to Normal Activity, May not drive while taking narcotic pain medications. Call your doctor if your incision/area has: Continuous Slow Oozing, Sudden Increased Bleeding Call your doctor if you observe: Fever of 101 or Higher Allergies/Adverse Reactions: Allergies No Known Allergies Allergy (Verified 01/31/20 08:54) Medications to take at Discharge potassium chloride 10 mEq capsule,extended release 10 meq PO QDAY 11/01/17 atorvastatin 20 mg tablet 20 mg PO QHS 08/23/18 RX: Metoprolol Succinate 25 mg PO DAILY 09/12/18 RX: Multivit with Iron,Minerals [Complete Senior] 1 ea PO DAILY 12/19/18 RX: Oxford-3 Fatty Acids/Fish Oil [Oxford 3 1,000 mg Softgel] 1 ea PO DAILY 12/19/18 RX: Ubidecarenone [Coq-10] 100 mg PO DAILY 12/19/18 omeprazole 20 mg capsule,delayed release 20 mg PO DAILY #90 cap 02/05/19 aspirin 81 mg tablet,delayed release 81 mg PO DAILY 09/24/19 sertraline 25 mg tablet 25 mg PO DAILY #14 tab 11/25/19 levothyroxine 88 mcg tablet 88 mcg PO DAILY #90 tab 12/12/19 RX: Baclofen 20 mg PO QHS PRN 01/21/20 RX: Clotrimazole 1 applic TOPICAL BID PRN 01/21/20 RX: Triamcinolone Acetonide 1 applic TOPICAL DAILY PRN 01/21/20 Primary Care Physician: Chon Banks DO [Primary Care Provider] - Test Results: Test results from this visit will be discussed in further detail at your follow- up appointment, if applicable. Please Follow Up With: Randall Moreno MD When: 2 WEEKS
--- NOTE | 2020-01-31 13:26 | PCM.OPRPT ---
Problem List (1) Chronic maxillary sinusitis Status: Chronic (2) Chronic ethmoidal sinusitis Status: Chronic (3) Chronic frontal sinusitis Status: Chronic Report of Operation Date of Procedure: 01/31/20 Pre-Operative Diagnosis: Chronic right maxillary, ethmoid, frontal sinusitis Post-Operative Diagnosis: Same Surgery/Procedure Performed:: Endoscopic right maxillary antrostomy with tissue removal, right total ethmoidectomy with frontal sinus exploration Description of Surgical Findings:: Olaf is a 70-year-old male with chronic right maxillary ethmoid and frontal sinusitis. He been on multiple courses of antibiotics but continued to suffer purulent nasal discharge with culture showing strep viridans suggestive of a dental origin. CT scan showed complete opacification of the right maxillary ethmoid and frontal sinus as well as a radiopaque foreign body within the maxillary sinus suggestive of possible amalgam or tooth root. The above procedure was offered in hopes of alleviation of these complaints and he was eager to proceed. The risk of coronavirus exposure in this time period was also discussed and he was accepting of these risk in exchange for treatment of his chronic and worsening sinus disease. The risks, alternatives, potential complications, and benefits were discussed at length and any questions answered to the patient and/or caregiver's satisfaction. Witnessed informed consent was obtained in the office, and the patient and/or caregiver was agreeable to proceed. Procedure went as follows: The patient was identified in the preoperative holding and brought to the operating room, was placed under general anesthesia and intubated. When appropriate anesthesia was obtained, the navigational head gear was placed and confirmed to be operational in accordance with the regulatory and compliance technician's directions. Pledgets soaked in a 50-50 mixture of oxymetazoline and 4% topical lidocaine were placed to decongest the nasal mucosa. These were then removed and beginning on the right side using a 0? endoscope the nasal cavity examined. The insertion of the middle turbinate and uncinate process was then injected with 1% lidocaine with 100,000 epinephrine for a total of 2 mL. Upon returning to the left side, the middle turbinate was medialized with a Sargent elevator. This allowed examination of the maxillary sinus ostia which was then probed with a double ball seeker. The uncinate process was then outfractured with a J curette and transected with a backbiting forceps. This was then removed with the microdebrider creating a wide maxillary antrostomy. The maxillary sinus noted to be completely filled with peanut butter consistency brown to black tarry material. Portions of this were then removed for culture and sensitivity. Using manual debridement, saline irrigation, and suction this material was then evacuated from the maxillary sinus. The ethmoid bulla was then entered and a total ethmoidectomy was then carried out working posteriorly to anterior. Any polyps, scar, and mucous secretions were removed. The frontal sinus ostia was then explored and any obstructing bone, polyps, or debris removed. Pledgets soaked in oxymetazoline were then placed for hemostasis. Floseal hemostatic agent was then applied. An NG tube was then placed to decompress the stomach and the patient returned to anesthesia, revived and extubated having tolerated the procedure well. Type of Anesthesia:: General Anesthesiologist: Davian Starr Special Medications: none Specimen's removed: right maxillary sinus contents Drains: none Estimated Blood Loss (mL): 150 mL Fluids Replaced: 1500 mL Grafts/Implants Used: none - Complications none - Admit VTE Documentation VTE Present on Admission: No VTE Mechan Device Prophylaxis: SCD's VTE Pharm Prophylaxis ordered?: No
[2020-01-31 13:41] VITALS: BP 118/69; BP 134/74; PULSE 65; RESP 16; TEMP 36.9; O2SAT 95
[2020-01-31 14:00] VITALS: BP 118/69; BP 126/73; PULSE 66; RESP 16; O2SAT 96
[2020-01-31 14:15] VITALS: BP 118/69; BP 120/56; PULSE 66; RESP 16; TEMP 36.9; O2SAT 98
[2020-01-31 14:55] VITALS: BP 118/69; BP 130/70; PULSE 66; RESP 16; TEMP 36.9; O2SAT 93
== END 2020-01-31 15:10 | disposition home or self-care (01) ==
LOC: SDC 08:34 → AC 08:35
PROVIDERS: Anesthesiology; PCP Family Medicine; Referring Provider Otolaryngology; Visit Provider Otolaryngology
PROC: (CPT 31253; principal; 2020-01-31 10:00)
DX: J32.0 Chronic maxillary sinusitis (principal); J32.1 Chronic frontal sinusitis; J32.2 Chronic ethmoidal sinusitis; Z11.59 Encounter for screening for other viral diseases; K21.9 Gastro-esophageal reflux disease without esophagitis; I25.2 Old myocardial infarction; E78.5 Hyperlipidemia, unspecified; E06.9 Thyroiditis, unspecified; F41.9 Anxiety disorder, unspecified; M19.90 Unspecified osteoarthritis, unspecified site; G25.81 Restless legs syndrome; E78.00 Pure hypercholesterolemia, unspecified; Z79.82 Long term (current) use of aspirin; Z79.899 Other long term (current) drug therapy
CPT/HCPCS: 00160; 31253; 31267; 80048; 84443; 85027; 87070; 87075; 87077; 87102; 87176; 87205; 87206; 87426; 87635; 88305; 88311; 88312; 93005; C9803; J7120; J2405; U0003

== ENCOUNTER → 2020-03-18 | Outpatient (CLI) | payer MEDICARE, SELFPAY | END | disposition home or self-care (01) | LOC: LABSPEC 13:50 | PROVIDERS: PCP Family Medicine; Referring Provider Nurse Practitioner Family; Visit Provider Nurse Practitioner Family | DX: U07.1 COVID-19 (principal) | CPT/HCPCS: 87635; U0003 ==

== ENCOUNTER → 2020-05-27 15:53 | Outpatient (CLI) | payer MEDICARE, SELFPAY ==
[2020-05-27 15:27] VITALS: BMI 26.7
== END ==
PROVIDERS: PCP Family Medicine; Referring Provider Family Medicine; Visit Provider Family Medicine
DX: N52.9 Male erectile dysfunction, unspecified (principal)
CPT/HCPCS: 36415; 84403

== ENCOUNTER → 2020-06-05 | Outpatient (CLI) | payer MEDICARE, SELFPAY ==
[2020-05-27 15:27] VITALS: BMI 26.7
== END | disposition home or self-care (01) ==
LOC: LABSPEC 14:59
PROVIDERS: PCP Family Medicine; Visit Provider Otolaryngology
DX: J32.0 Chronic maxillary sinusitis (principal)
CPT/HCPCS: 87070; 87077; 87186; 87205

== ENCOUNTER → 2020-07-15 16:49 | Outpatient (CLI) | payer MEDICARE, SELFPAY ==
[2020-05-27 15:27] VITALS: BMI 26.7
--- NOTE | 2020-07-15 16:58 | CT_ITS ---
STUDY: CT MAXILLOFACIAL SINUSES REASON FOR EXAM: Male, 70 years old. CHRONIC MAXILLARY SINUSITIS TECHNIQUE: The patient was scanned in a multi detector CT scanner. High resolution axial imaging was performed without the administration of intravenous contrast material. Sagittal and coronal images were reconstructed. Individualized dose optimization techniques were used for this CT. COMPARISON: None. FINDINGS: FRONTAL SINUSES: There is mild mucosal thickening of the right frontal sinus cavity and frontal ethmoidal recess. ETHMOIDAL SINUSES: Mucosal thickening within the right ethmoid air cells. MAXILLARY SINUSES: Near complete opacification of the right maxillary sinus. SPHENOIDAL SINUSES: Mild mucosal thickening in the right ethmoid sinus cavity. Surgically resected right ostiomeatal complex. Mucosal thickening along the right turbinates. Yady bullosa of the left middle turbinate. The visualized osseous structures are normal. The visualized bilateral orbital contents are normal. CT/Sinus/Facial Bone IMPRESSION: Right-sided paranasal sinus disease as noted. Electronically Signed: Jef Daugherty DO at 20:18 EDT Tel [phone], Service support ,
== END ==
PROVIDERS: PCP Family Medicine; Referring Provider Otolaryngology; Visit Provider Otolaryngology
DX: J32.0 Chronic maxillary sinusitis (principal)
CPT/HCPCS: 70486

== ENCOUNTER 2021-06-07 14:45 | Outpatient (CLI) | payer MEDICARE, SELFPAY ==
[2021-06-07 15:46] LABS: Absolute Lymphocyte Count 0.97 X10^3/uL (0.83-4.51); Absolute Neutrophil Count 5.2 X10^3/uL (2.0-7.7); Basophil# 0.04 X10^3/uL; Basophil% 0.6 % (0-1); Eosinophil# 0.15 X10^3/uL; Eosinophils% 2.2 % (0-5); Hematocrit 46.6 % (40-54); Hemoglobin 14.9 g/dL (13.0-16.5); Lymphocyte # 0.97 X10^3/ul (0.83-4.51); Lymphocyte % 13.9 % (19-41); Mean Corpuscular Hgb 32.4 pg (27.0-32.0); Mean Corpuscular Volume 101.3 fL (80-94); Mean Platelet Vol. 11.2 fl (6.2-12.0); Monocyte# 0.55 X10^3/uL; Monocyte% 7.9 % (0-10); NRBC Flagged by Analyzer 0 % (0-5); Neutrophil # 5.23 X10^3/uL (2.7-7.7); Neutrophil % 75.1 % (47-70); Platelet Count 164 K/mm3 (150-450); RBC Distribution Width CV 13.2 % (11.6-14.6); RBC Distribution Width SD 49.1 fl (35.1-43.9)
[2021-06-07 17:04] LABS: Anion Gap 2 (5-15); BUN 14 mg/dL (7-18); BUN/Creat Ratio 13.1 RATIO (10-20); Calcium,Total 8.7 mg/dL (8.5-10.1); Chloride 104 mmol/L (98-107); Cholesterol 130 mg/dL (200); Creatinine, Serum 1.07 mg/dL (0.70-1.30); EST Glomerular Filtration Rate 72 mL/min (>60); Est Glom Filt Rate - Afr Amer 87 mL/min (>60); Glucose 110 mg/dL (74-106); High Density Lipoprotein 50 mg/dL; Potassium 4.7 mmol/L (3.5-5.1); Sodium Level 138 mmol/L (136-145); Thyroid Stim Hormone (TSH) 3.95 uIU/mL (0.358-3.74); Triglycerides 65 mg/dL; Very Low Density Lipoprotein 13 mg/dL (5-40)
== END 2021-06-07 23:59 | disposition home or self-care (01) ==
LOC: BIMLAB 14:46
PROVIDERS: PCP Family Medicine; Referring Provider Physician Assistant; Visit Provider Physician Assistant
DX: E03.9 Hypothyroidism, unspecified (principal); E78.2 Mixed hyperlipidemia; F41.9 Anxiety disorder, unspecified
CPT/HCPCS: 36415; 80048; 80061; 84443; 85025

== ENCOUNTER 2021-06-30 11:00 | Outpatient (CLI) | payer MEDICARE, SELFPAY ==
[2021-06-30 12:21] LABS: Potassium 4.3 mmol/L (3.5-5.1)
== END 2021-06-30 23:59 | disposition home or self-care (01) ==
LOC: BIMLAB 11:01
PROVIDERS: PCP Family Medicine; Referring Provider Physician Assistant; Visit Provider Physician Assistant
DX: E87.6 Hypokalemia (principal)
CPT/HCPCS: 36415; 84132

== ENCOUNTER → 2021-08-11 | Outpatient (CLI) | payer MEDICARE, SELFPAY | END | disposition home or self-care (01) | LOC: BIMLAB 14:26 | PROVIDERS: PCP Family Medicine; Referring Provider Physician Assistant; Visit Provider Physician Assistant | DX: E03.9 Hypothyroidism, unspecified (principal) | CPT/HCPCS: 36415; 84443 ==

== ENCOUNTER → 2022-04-28 | Outpatient (CLI) | payer MEDICARE, SELFPAY ==
[2022-04-28 17:39] LABS: Thyroid Stim Hormone (TSH) 1.54 uIU/mL (0.358-3.74)
== END | disposition home or self-care (01) ==
PROVIDERS: PCP Family Medicine; Referring Provider Physician Assistant; Visit Provider Physician Assistant
DX: E03.9 Hypothyroidism, unspecified (principal)
CPT/HCPCS: 36415; 84443

== ENCOUNTER → 2022-07-04 | Outpatient (CLI) | payer MEDICARE, SELFPAY ==
[2022-07-04 12:08] LABS: Absolute Lymphocyte Count 1.31 X10^3/uL (0.83-4.51); Absolute Neutrophil Count 3.7 X10^3/uL (2.0-7.7); Basophil# 0.03 X10^3/uL; Basophil% 0.5 % (0-1); Eosinophil# 0.27 X10^3/uL; Eosinophils% 4.6 % (0-5); Hemoglobin 15.5 g/dL (13.0-16.5); Lymphocyte # 1.31 X10^3/ul (0.83-4.51); Lymphocyte % 22.2 % (19-41); Mean Corp Hgb Conc 32.3 g/dL (32-36); Mean Corpuscular Hgb 32.6 pg (27.0-32.0); Mean Corpuscular Volume 101.1 fL (80-94); Mean Platelet Vol. 11.2 fl (6.2-12.0); Monocyte# 0.56 X10^3/uL; Monocyte% 9.5 % (0-10); NRBC Flagged by Analyzer 0 % (0-5); Neutrophil # 3.72 X10^3/uL (2.7-7.7); Neutrophil % 62.9 % (47-70); Platelet Count 165 K/mm3 (150-450); RBC Distribution Width CV 13.2 % (11.6-14.6); RBC Distribution Width SD 49.9 fl (35.1-43.9); Red Blood Count 4.75 M/mm3 (4.6-6.2); White Blood Count 5.9 K/mm3 (4.4-11.0)
[2022-07-04 12:34] LABS: Cholesterol 157 mg/dL (200); Ferritin 50 ng/mL (26-388); High Density Lipoprotein 62 mg/dL; Iron 129 ug/dL (65-175); Iron Binding Capacity,Total 269 ug/dL (250-450); Triglycerides 68 mg/dL; Very Low Density Lipoprotein 14 mg/dL (5-40)
[2022-07-04 12:42] LABS: Vitamin B12 499 pg/mL (211-911); Vitamin D,25 Hydroxy 33.3 ng/mL
== END | disposition home or self-care (01) ==
LOC: BIMLAB 08:38
PROVIDERS: PCP Family Medicine; Referring Provider Nurse Practitioner Family; Visit Provider Nurse Practitioner Family
DX: E55.9 Vitamin D deficiency, unspecified (principal); I49.8 Other specified cardiac arrhythmias; D64.9 Anemia, unspecified; E78.2 Mixed hyperlipidemia
CPT/HCPCS: 36415; 80061; 82306; 82607; 82728; 83540; 83550; 85025

== ENCOUNTER → 2023-05-31 | Outpatient (CLI) | payer MEDICARE, SELFPAY ==
--- NOTE | 2023-05-31 06:06 | ECHOCS_ITS ---
Reason For Study: CAD Procedure This was a 2D Doppler, Color Flow transthoracic echocardiogram. The study was technically difficult. Exam performed in department. Left Ventricle Normal LV size. The estimated ejection fraction is 55 %. Stage 1 diastolic dysfunction. Left ventricular systolic function is lower limits of normal. No regional wall motion abnormalities noted. Right Ventricle Normal RV size. Normal systolic function. Atria Normal left atrium. Normal right atrium. Bubble contrast study negative for right to left interatrial shunt. Mitral Valve Normal mitral valve. Mild (1+) eccentric mitral valve insufficiency. Tricuspid Valve Normal tricuspid valve. Mild tricuspid valve insufficiency. Pulmonary artery systolic pressure is 21 mmHg. Aortic Valve Trisinus/trileaflet aortic valve. Mild (1+) aortic valve insufficiency. Pulmonic Valve Normal pulmonic valve. Great Vessels Normal aortic root. The pulmonary artery is normal size. Inferior vena cava collapse with respiration. Pericardium/Pleural No pericardial effusion. Medication Diluted definity 2.5ml given slow IV push to enhance endocardial definition. Performed a rapid injection of agitated mix of 9 cc saline and 1cc air to assess for atrial septal defect. MMode/2D Measurements & Calculations LVIDd: 5.7 cm IVSd: 0.87 cm Ao root diam: 3.4 cm LVIDs: 4.3 cm LVPWd: 1.3 cm RVDd: 3.7 cm FS: 23.3 % LAV(MOD-sp4): 99.3 ml LVAd ap4: 46.8 cm2 LVAd ap2: 39.7 cm2 LVLd ap4: 9.0 cm LVLd ap2: 8.4 cm EDV(MOD-sp4): 197.9 ml EDV(MOD-sp2): 157.3 ml EDV(sp4-el): 205.3 ml EDV(sp2-el): 159.7 ml LVAs ap4: 32.1 cm2 LVAs ap2: 29.7 cm2 LVLs ap4: 8.5 cm LVLs ap2: 8.0 cm ESV(MOD-sp4): 99.6 ml ESV(MOD-sp2): 100.1 ml ESV(sp4-el): 102.2 ml ESV(sp2-el): 93.8 ml EF(MOD-sp4): 49.6 % EF(MOD-sp2): 36.4 % EF(sp4-el): 50.2 % SV(MOD-sp4): 98.2 ml SV(MOD-sp2): 57.2 ml SV(sp4-el): 103.1 ml LA A4 area: 27.5 cm2 LA dimension(2D): 5.3 cm RA A4 area: 24.5 cm2 TAPSE: 2.0 cm Time Measurements MV dec time: 0.20 sec Doppler Measurements & Calculations MV E max jaquan: 60.3 cm/sec Lat Peak E' Jaquan: 6.5 cm/sec Med Peak E' Jaquan: 4.1 cm/sec MV A max jaquan: 82.0 cm/sec E/E' lat: 9.3 E/E' med: 14.8 MV E/A: 0.74 Ao V2 max: 114.6 cm/sec LV V1 max: 96.8 cm/sec MV dec slope: 306.9 cm/sec2 Ao max P.3 mmHg LV V1 max P.7 mmHg Ao V2 mean: 89.7 cm/sec Ao mean P.4 mmHg Ao V2 VTI: 25.6 cm PA V2 max: 181.3 cm/sec PI end-d jaquan: 99.4 cm/sec TR max jaquan: 216.3 cm/sec PA max PG (full): 9.5 mmHg TR max P.7 mmHg PA V2 mean: 123.4 cm/sec PA mean PG (full): 5.1 mmHg ECHO/Echo Complete W/ Contrast Interpretation Summary Normal LV size. The estimated ejection fraction is 55 %. Bubble contrast study negative for right to left interatrial shunt. Mild (1+) eccentric mitral valve insufficiency. Stage 1 diastolic dysfunction. Left ventricular systolic function is lower limits of normal. Contrast injection was performed. Ordering Physician: Hemant Lovett Referring Physician: Augustin Banks M.D. Performed By: Dione Gregg, SAMANTHA, RVT
--- OUTSIDE RECORDS SUMMARY | 2023-05-31 06:08 | XMS RPT_ITS | CCD ---
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 Physical Exam Constitutional: General: He is not in acute distress. Appearance: He is not diaphoretic. HENT: Head: Normocephalic and atraumatic. Right Ear: External ear normal. Left Ear: External ear normal. Nose: Nose normal. Mouth/Throat: Pharynx: Oropharynx is clear. Eyes: General: Right eye: No discharge. Left eye: No discharge. Conjunctiva/sclera: Conjunctivae normal. Pupils: Pupils are equal, round, and reactive to light. Cardiovascular: Rate and Rhythm: Normal rate and regular rhythm. Heart sounds: Normal heart sounds, S1 normal and S2 normal. No murmur heard. No friction rub. No gallop. No S3 or S4 sounds. Pulmonary: Effort: Pulmonary effort is normal. No respiratory distress. Breath sounds: Normal breath sounds. No wheezing or rales. Chest: Chest wall: No tenderness. Musculoskeletal: General: Normal range of motion. Cervical back: Normal range of motion and neck supple. Skin: General: Skin is warm and dry. Neurological: Mental Status: He is alert and oriented to person, place, and time. Psychiatric: Mood and Affect: Mood normal. Behavior: Behavior normal. Thought Content: Thought content normal. Judgment: Judgment normal. Pertinent Labs: CBC: Hemoglobin (g/dL) Date Value 10/09/2020 14.9 Hematocrit (%) Date Value 10/09/2020 45.6 WBC (k/uL) Date Value 10/09/2020 5.60 Platelet Count (k/uL) Date Value 10/09/2020 166 BMP: Glucose (mg/dL) Date Value 10/09/2020 107 Potassium (mmol/L) Date Value 10/09/2020 4.5 Sodium (mmol/L) Date Value 10/09/2020 138 Chloride (mmol/L) Date Value 10/09/2020 101 CO2 (mmol/L) Date Value 10/09/2020 27 Creatinine (mg/dL) Date Value 10/09/2020 1.04 BUN (mg/dL) Date Value 10/09/2020 11 Anion Gap (mmol/L) Date Value 10/09/2020 10 Calcium (mg/dL) Date Value 10/09/2020 9.5 INR: Lipid Profile: Cholesterol, Total Date Value Ref Range Status 10/28/2020 133 <200 mg/dL Final Comment: <200 mg/dL, Desirable 200-239 mg/dL, Borderline high >239 mg/dL, High HDL Cholesterol Date Value Ref Range Status 10/28/2020 54 >39 mg/dL Final Comment: 40-59 mg/dL, Acceptable >59 mg/dL, High: Negative risk factor for coronary heart disease <40 mg/dL, Low: Positive risk factor for coronary heart disease LDL Cholesterol Date Value Ref Range Status 10/28/2020 69 <100 mg/dL Final Comment: <100 mg/dL, Optimal 100-129 mg/dL, Near optimal/above optimal 130-159 mg/dL, Borderline high 160-189 mg/dL, High >189 mg/dL, Very high Secondary prevention optimal LDL Cholesterol levels are recommended to be < 70 mg/dL Triglyceride Date Value Ref Range Status 10/28/2020 48 <150 mg/dL Final Comment: <150 mg/dL, Normal 150-199 mg/dL, Borderline high 200-499 mg/dL, High >499 mg/dL, Very high Hemoglobin A1C: No results found for: HGBA1C TSH: No results found for: TSHREFL Prior Cardiac Testing none Assessment and Plan: 71 years old gentleman prior history of coronary artery disease and RCA stents doing well from the cardiac point of view Continue same cardiac medical therapy Coronary artery disease Prior history of RCA stent Continue aspirin and statin 2. Hyperlipidemia Continue statin check lipid profile Follow up planning: One year Electronically signed by Iris Cornejo MD on January 24, 2022, 2:45 PM The above note was partially created using a dictation recognition software. A reasonable attempt has been made to correct any errors. documented in this encounter [facility] 12-22-2021 Miscellaneous Notes Patient's request for medication is as follows: Requested Prescriptions Pending Prescriptions Disp Refills atorvastatin (LIPITOR) 20 mg tablet [Pharmacy Med Name: ATORVASTATIN CALCIUM 20 MG Tablet] 90 tablet 3 Sig: TAKE 1 TABLET EVERY DAY Last seen 07/12/2021. Next visit 12/27/2021. Prescription(s) as above. Please process accordingly. Heidi Mondragon LPN documented in this encounter [facility] 10-20-2021 Nurse Note Patient arrived laying on left side. States that he is not having any pain at this time. Patient's abdomen appears to be non distended and soft to touch. Amee Sahni RN documented in this encounter [facility] 10-20-2021 History and physical note UPDATED PROCEDURAL SEDATION HISTORY AND PHYSICAL EXAMINATION SERVICE DATE: 10/20/2021 SERVICE TIME: 9:57 PHYSICAL EXAM MUST BE COMPLETED ON ADMISSION PROCEDURE: colonoscopy, possible biopsies Procedure Indications: screening for colon cancer The History and Physical (completed in the past 30 days) has been reviewed and the patient has been examined. The contents accurately reflect the patient's condition with the following additions or revisions since the H&P was completed. ASA Class: 2 Examination indicates no changes. AIRWAY: Airway Visualization of Uvula: Yes Mouth opening greater than 2 fingerbreadths: Yes Neck Full Range of Motion: Yes LUNGS: Lungs clear to auscultation CARDIAC: Regular rhythm,Regular rate Provisional Diagnosis/Treatment Plan: colonoscopy possibel biopses SEDATION GOAL: Moderate This H&P can be found in the Electronic Medical Record . SIGNATURE: Brenda Ko MD PATIENT NAME: Anish Wagoner DATE: October 20, 2021 TIME: 9:59 AM HISTORY AND PHYSICAL Anish Wagoner 1950 REFERRING PHYSICIAN: Nava Banks DO CHIEF COMPLAINT: Consult (colonoscopy consultation) HPI: The patient is a 71 year old male presents for screening for colon cancer via colonoscopy The patient denies blood in stools, denies abdominal pain, and denies changes in bowel habits. The patient notes no colon cancer in immediate family. The patient has had previous colonoscopy in 2018, but the colon cleansing preparation was inadequate. PAST MEDICAL HISTORY Diagnosis Date Arthritis Cardiac arrhythmia Chronic prostatitis Esophageal reflux Generalized anxiety disorder Hypothyroidism Internal hemorrhoids without mention of complication Other and unspecified hyperlipidemia Unspecified congenital anomaly of heart PAST SURGICAL HISTORY Procedure Laterality Date COLONOSCOPY 2018 unable to be completed due to poor bowel prep COLONOSCOPY FLX DX W/COLLJ SPEC WHEN PFRMD 01/02/2007 PAST SURGICAL HISTORY OF 02/24/2005 5 stents placed corinary arterty SHX CARDIAC RADIOFREQUENCY ABLATION TONSILLECTOMY PRIMARY/SECONDARY <AGE 10 Tonsillectomy TOTAL HIP REPLACEMENT Bilateral Current Outpatient Medications Medication Sig fluticasone (FLONASE) 50 mcg/actuation nasal spray Use 2 Sprays in each nostril once daily. atorvastatin (LIPITOR) 20 mg tablet Take 1 tablet by mouth once daily. baclofen (LIORESAL) 20 mg tablet as needed. Levothyroxine 88 mcg cap Take 1 capsule by mouth once daily. multivitamin/iron/folic acid (MULTI COMPLETE WITH IRON ORAL) Take by mouth. Omeprazole Magnesium (PRILOSEC) 10 mg suDR Take 20 mg by mouth. nitroglycerin sublingual (NITROQUICK) 0.4 mg SL tablet Dissolve 1 tablet under the tongue as needed. FOR CHEST PAIN. IF NO RELIEF CALL 911 Coenzyme Q10 (COQ-10) 100 mg ORAL Cap Take 100 mg by mouth once daily. FISH OIL 120 MG-180 MG-1000 MG CAP Take one(1) tablet daily. ASPIRIN 81 MG TAB Take one (1) tablet daily . peg 3350-Electrolytes (GOLYTELY) 236-22.74-6.74 -5.86 gram suspension Refer to printed prep instructions from your provider. saysgwavcx-apkhdozbuzon-kslmuzq adil 30 MG- 2 MG - 20 MCG/ML injection (CPD) 0.25 mL by INTRACAVERNOSAL route as directed. Inject 25 Units into penis as directed Needle, Disp, 30 G (BD DISPOSABLE NEEDLES) 30 gauge x 1/2 ndle 1 Each as needed. ALLERGIES: Patient has no known allergies. PERSONAL HISTORY: Social History Tobacco Use Smoking status: Never Smoker Smokeless tobacco: Never Used Vaping Use Vaping Use: Never used Substance Use Topics Alcohol use: No Drug use: No FAMILY HISTORY Problem Relation Age of Onset Heart Mother Heart Father mi at age 64 lived to age 80 Heart Brother Diabetes Brother Diabetes Maternal Grandmother Colon Cancer Niece The review of systems data was entered by the nurse and reviewed by wi Nursing Notes: Kira Sales RN 08/27/2021 2:16 PM Signed REVIEW OF SYSTEMS: General: The patient denies fatigue, denies weight loss, denies weight gain, denies feeling hot, and denies feelings of cold. Eyes: The patient denies glaucoma, denies eye injury/surgery, wears glasses or contacts. Ear/Nose/Throat: The patient denies allergies, NOTES hayfever, denies ear infections, and denies bloody noses. Cardiovascular: The patient denies chest pain, denies heart disease, denies high blood pressure,NOTES cardiac stent, NOTES prior heart attack, denies irregular heart beat, NOTES high cholesterol, denies poor circulation, denies heart failure, other cardiac issues, denies claudication, denies cold feet, denies peripheral arterial stent. Respiratory: The patient denies tuberculosis, denies pneumonia, denies frequent cough, denies pulmonary embolism, denies shortness of breath, and denies coughing up blood. Gastrointestinal: The patient denies difficulty swallowing, NOTES acid reflux, denies ulcers, denies vomiting, denies jaundice/hepatitis, denies gallbladder problems, denies black or tarry stools, denies hemorrhoids, denies bleeding from rectum, denies diverticulitis, denies constipation, denies diarrhea, denies loss of stool control, and denies hernias. Kidney/Bladder: The patient denies kidney stones, denies urine infections, and denies bloody urine. Skin: The patient denies a history of skin cancer, denies bleeding/changing moles, and denies a history of skin rash. Neurologic: The patient denies a history of epilepsy/convulsions, denies headaches, denies head/spinal injuries, and denies stroke/TIA. Psychiatric: The patient denies psychiatric medications, denies depression, and denies voices, denies substance abuse. Endocrine: The patient NOTES thyroid disorders, denies diabetes, and denies hormonal problems. Hematologic: The patient denies a history of bruising, denies bleeding, and denies anemia, denies blood clots. Infections: The patient denies a history of measles and mumps, denies rheumatic fever, and denies sexually transmitted diseases. Musculoskeletal: The patient denies back pain/injury, denies back problems, denies sciatica, denies knee/foot trouble, NOTES arthritis, or denies gout. When was patient's last Mammogram screening? N/A Last Colonoscopy: 2018 Kira Sales RN PHYSICAL EXAMINATION: General: The patient is 71 year old male, well nourished, well hydrated in no acute distress. The patient is oriented to time, place, and person. VITALS: Blood pressure 120/68, pulse 80, temperature 36.8 C (98.3 F), height 193 cm (6' 4 ), weight 102.8 kg (226 lb 9.6 oz), SpO2 98 %. Body mass index is 27.58 kg/m . Head: Normal cephalic, atraumatic Eyes: pupils are equally round, sclera are clear/anicteric Neck is supple with no tracheal deviation Respiratory: Normal respiratory excursion and pattern. Abdominal exam: benign Extremities: no clubbing, cyanosis or edema. Neuro: non focal Psych: normal mood IMPRESSION: PLAN: I have discussed the above with the patient. I have offered colonoscopy , possible biopsies I have explained the procedure to the patient. I have counseled the patient as to the risks of the procedure, including but not limited to: infection, bleeding, injury to any intrabdominal organs such as liver/spleen, perforation of the GI tract, inability to complete the procedure, complications of anesthesia, etc. the patient understands. The patient was offered a surgery/procedure at a [facility] facility. The provider and patient have discussed in detail the risk of exposure to and/or potential harm posed by the COVID-19 virus with having a surgery/procedure at this time versus the risk of delaying the surgery/procedure. It is not possible to know either the risk of delaying the surgery or procedure or chance of getting an infection with perfect accuracy, but a joint decision was made between the patient and the provider to proceed at this time with the scheduled surgery/procedure. I have explained to the patient the difference between IV conscious sedation and MAC anesthesia - and I have offered either, according to the patient's wishes. I have explained that with IV conscious sedation there is no anesthesia provider available and therefore there is a limitation of the amount of IV medications that can be given and that the patient may wake up in the middle of the procedure and/or experience pain/discomfort during the procedure. Further discussion was done and the patient was given the opportunity to ask questions and all questions were answered. The patient chooses IV conscious sedation. Patient was counseled that if there are changes in his/her medical condition, to let the office know if surgery should proceed. If there are changes in patient's medical condition from time of this encounter to the day of the procedure that preclude anesthesia, patient may have procedure cancelled for patient's safety. The patient wishes to proceed. I have answered all questions to the patient s satisfaction and the patient has no further questions. Diagnoses: (Z12.11) Screening for colon cancer (primary encounter diagnosis) documented in this encounter [facility] 08-29-2021 Note HNO ID: [id number] Author: Brenda Ko MD Service: ? Author Type: Physician Type: Progress Notes Filed: 08/29/2021 11:46 AM Note Text: HISTORY AND PHYSICAL Anish Wagoner 1950 REFERRING PHYSICIAN: Nava Banks DO CHIEF COMPLAINT: Consult (colonoscopy consultation) HPI: The patient is a 71 year old male presents for screening for colon cancer via colonoscopy The patient denies blood in stools, denies abdominal pain, and denies changes in bowel habits. The patient notes no colon cancer in immediate family. The patient has had previous colonoscopy in 2018, but the colon cleansing preparation was inadequate. PAST MEDICAL HISTORY Diagnosis Date - Arthritis - Cardiac arrhythmia - Chronic prostatitis - Esophageal reflux - Generalized anxiety disorder - Hypothyroidism - Internal hemorrhoids without mention of complication - Other and unspecified hyperlipidemia - Unspecified congenital anomaly of heart PAST SURGICAL HISTORY Procedure Laterality Date - COLONOSCOPY 2018 unable to be completed due to poor bowel prep - COLONOSCOPY FLX DX W/COLLJ SPEC WHEN PFRMD 01/02/2007 - PAST SURGICAL HISTORY OF 02/24/2005 5 stents placed corinary arterty - SHX CARDIAC RADIOFREQUENCY ABLATION - TONSILLECTOMY PRIMARY/SECONDARY Tonsillectomy - TOTAL HIP REPLACEMENT Bilateral Current Outpatient Medications Medication Sig - fluticasone (FLONASE) 50 mcg/actuation nasal spray Use 2 Sprays in each nostril once daily. - atorvastatin (LIPITOR) 20 mg tablet Take 1 tablet by mouth once daily. - baclofen (LIORESAL) 20 mg tablet as needed. - Levothyroxine 88 mcg cap Take 1 capsule by mouth once daily. - multivitamin/iron/folic acid (MULTI COMPLETE WITH IRON ORAL) Take by mouth. - Omeprazole Magnesium (PRILOSEC) 10 mg suDR Take 20 mg by mouth. - nitroglycerin sublingual (NITROQUICK) 0.4 mg SL tablet Dissolve 1 tablet under the tongue as needed. FOR CHEST PAIN. IF NO RELIEF CALL 911 - Coenzyme Q10 (COQ-10) 100 mg ORAL Cap Take 100 mg by mouth once daily. - FISH OIL 120 MG-180 MG-1000 MG CAP Take one(1) tablet daily. - ASPIRIN 81 MG TAB Take one (1) tablet daily . - peg 3350-Electrolytes (GOLYTELY) 236-22.74-6.74 -5.86 gram suspension Refer to printed prep instructions from your provider. - pobakrwxlj-ymhsfvbmgnit-slholzi adil 30 MG- 2 MG - 20 MCG/ML injection (CPD) 0.25 mL by INTRACAVERNOSAL route as directed. Inject 25 Units into penis as directed - Needle, Disp, 30 G (BD DISPOSABLE NEEDLES) 30 gauge x 1/2 ndle 1 Each as needed. ALLERGIES: Patient has no known allergies. PERSONAL HISTORY: Social History Tobacco Use - Smoking status: Never Smoker - Smokeless tobacco: Never Used Vaping Use - Vaping Use: Never used Substance Use Topics - Alcohol use: No - Drug use: No FAMILY HISTORY Problem Relation Age of Onset - Heart Mother - Heart Father mi at age 64 lived to age 80 - Heart Brother - Diabetes Brother - Diabetes Maternal Grandmother - Colon Cancer Niece The review of systems data was entered by the nurse and reviewed by wi Nursing Notes: Kira Sales RN 08/27/2021 2:16 PM Signed REVIEW OF SYSTEMS: General: The patient denies fatigue, denies weight loss, denies weight gain, denies feeling hot, and denies feelings of cold. Eyes: The patient denies glaucoma, denies eye injury/surgery, wears glasses or contacts. Ear/Nose/Throat: The patient denies allergies, NOTES hayfever, denies ear infections, and denies bloody noses. Cardiovascular: The patient denies chest pain, denies heart disease, denies high blood pressure,NOTES cardiac stent, NOTES prior heart attack, denies irregular heart beat, NOTES high cholesterol, denies poor circulation, denies heart failure, other cardiac issues, denies claudication, denies cold feet, denies peripheral arterial stent. Respiratory: The patient denies tuberculosis, denies pneumonia, denies frequent cough, denies pulmonary embolism, denies shortness of breath, and denies coughing up blood. Gastrointestinal: The patient denies difficulty swallowing, NOTES acid reflux, denies ulcers, denies vomiting, denies jaundice/hepatitis, denies gallbladder problems, denies black or tarry stools, denies hemorrhoids, denies bleeding from rectum, denies diverticulitis, denies constipation, denies diarrhea, denies loss of stool control, and denies hernias. Kidney/Bladder: The patient denies kidney stones, denies urine infections, and denies bloody urine. Skin: The patient denies a history of skin cancer, denies bleeding/changing moles, and denies a history of skin rash. Neurologic: The patient denies a history of epilepsy/convulsions, denies headaches, denies head/spinal injuries, and denies stroke/TIA. Psychiatric: The patient denies psychiatric medications, denies depression, and denies voices, denies substance abuse. Endocrine: The patient NOTES thyroid disorders, denies diabetes, and den (more content not included)... [facility] 08-29-2021 History of Presen t illness Narrative HISTORY AND PHYSICAL Anish Wagoner 1950 REFERRING PHYSICIAN: Nava Banks DO CHIEF COMPLAINT: Consult (colonoscopy consultation) HPI: The patient is a 71 year old male presents for screening for colon cancer via colonoscopy The patient denies blood in stools, denies abdominal pain, and denies changes in bowel habits. The patient notes no colon cancer in immediate family. The patient has had previous colonoscopy in 2018, but the colon cleansing preparation was inadequate. PAST MEDICAL HISTORY Diagnosis Date Arthritis Cardiac arrhythmia Chronic prostatitis Esophageal reflux Generalized anxiety disorder Hypothyroidism Internal hemorrhoids without mention of complication Other and unspecified hyperlipidemia Unspecified congenital anomaly of heart PAST SURGICAL HISTORY Procedure Laterality Date COLONOSCOPY 2018 unable to be completed due to poor bowel prep COLONOSCOPY FLX DX W/COLLJ SPEC WHEN PFRMD 01/02/2007 PAST SURGICAL HISTORY OF 02/24/2005 5 stents placed corinary arterty SHX CARDIAC RADIOFREQUENCY ABLATION TONSILLECTOMY PRIMARY/SECONDARY <AGE 10 Tonsillectomy TOTAL HIP REPLACEMENT Bilateral Current Outpatient Medications Medication Sig fluticasone (FLONASE) 50 mcg/actuation nasal spray Use 2 Sprays in each nostril once daily. atorvastatin (LIPITOR) 20 mg tablet Take 1 tablet by mouth once daily. baclofen (LIORESAL) 20 mg tablet as needed. Levothyroxine 88 mcg cap Take 1 capsule by mouth once daily. multivitamin/iron/folic acid (MULTI COMPLETE WITH IRON ORAL) Take by mouth. Omeprazole Magnesium (PRILOSEC) 10 mg suDR Take 20 mg by mouth. nitroglycerin sublingual (NITROQUICK) 0.4 mg SL tablet Dissolve 1 tablet under the tongue as needed. FOR CHEST PAIN. IF NO RELIEF CALL 911 Coenzyme Q10 (COQ-10) 100 mg ORAL Cap Take 100 mg by mouth once daily. FISH OIL 120 MG-180 MG-1000 MG CAP Take one(1) tablet daily. ASPIRIN 81 MG TAB Take one (1) tablet daily . peg 3350-Electrolytes (GOLYTELY) 236-22.74-6.74 -5.86 gram suspension Refer to printed prep instructions from your provider. jkomxjeize-mzwynbsdoenq-flpmnmj adil 30 MG- 2 MG - 20 MCG/ML injection (CPD) 0.25 mL by INTRACAVERNOSAL route as directed. Inject 25 Units into penis as directed Needle, Disp, 30 G (BD DISPOSABLE NEEDLES) 30 gauge x 1/2 ndle 1 Each as needed. ALLERGIES: Patient has no known allergies. PERSONAL HISTORY: Social History Tobacco Use Smoking status: Never Smoker Smokeless tobacco: Never Used Vaping Use Vaping Use: Never used Substance Use Topics Alcohol use: No Drug use: No FAMILY HISTORY Problem Relation Age of Onset Heart Mother Heart Father mi at age 64 lived to age 80 Heart Brother Diabetes Brother Diabetes Maternal Grandmother Colon Cancer Niece The review of systems data was entered by the nurse and reviewed by wi Nursing Notes: Kira Sales RN 08/27/2021 2:16 PM Signed REVIEW OF SYSTEMS: General: The patient denies fatigue, denies weight loss, denies weight gain, denies feeling hot, and denies feelings of cold. Eyes: The patient denies glaucoma, denies eye injury/surgery, wears glasses or contacts. Ear/Nose/Throat: The patient denies allergies, NOTES hayfever, denies ear infections, and denies bloody noses. Cardiovascular: The patient denies chest pain, denies heart disease, denies high blood pressure,NOTES cardiac stent, NOTES prior heart attack, denies irregular heart beat, NOTES high cholesterol, denies poor circulation, denies heart failure, other cardiac issues, denies claudication, denies cold feet, denies peripheral arterial stent. Respiratory: The patient denies tuberculosis, denies pneumonia, denies frequent cough, denies pulmonary embolism, denies shortness of breath, and denies coughing up blood. Gastrointestinal: The patient denies difficulty swallowing, NOTES acid reflux, denies ulcers, denies vomiting, denies jaundice/hepatitis, denies gallbladder problems, denies black or tarry stools, denies hemorrhoids, denies bleeding from rectum, denies diverticulitis, denies constipation, denies diarrhea, denies loss of stool control, and denies hernias. Kidney/Bladder: The patient denies kidney stones, denies urine infections, and denies bloody urine. Skin: The patient denies a history of skin cancer, denies bleeding/changing moles, and denies a history of skin rash. Neurologic: The patient denies a history of epilepsy/convulsions, denies headaches, denies head/spinal injuries, and denies stroke/TIA. Psychiatric: The patient denies psychiatric medications, denies depression, and denies voices, denies substance abuse. Endocrine: The patient NOTES thyroid disorders, denies diabetes, and denies hormonal problems. Hematologic: The patient denies a history of bruising, denies bleeding, and denies anemia, denies blood clots. Infections: The patient denies a history of measles and mumps, denies rheumatic fever, and denies sexually transmitted diseases. Musculoskeletal: The patient denies back pain/injury, denies back problems, denies sciatica, denies knee/foot trouble, NOTES arthritis, or denies gout. When was patient's last Mammogram screening? N/A Last Colonoscopy: 2018 Kira Sales RN PHYSICAL EXAMINATION: General: The patient is 71 year old male, well nourished, well hydrated in no acute distress. The patient is oriented to time, place, and person. VITALS: Blood pressure 120/68, pulse 80, temperature 36.8 C (98.3 F), height 193 cm (6' 4 ), weight 102.8 kg (226 lb 9.6 oz), SpO2 98 %. Body mass index is 27.58 kg/m . Head: Normal cephalic, atraumatic Eyes: pupils are equally round, sclera are clear/anicteric Neck is supple with no tracheal deviation Respiratory: Normal respiratory excursion and pattern. Abdominal exam: benign Extremities: no clubbing, cyanosis or edema. Neuro: non focal Psych: normal mood Assessment IMPRESSION: PLAN: I have discussed the above with the patient. I have offered colonoscopy , possible biopsies I have explained the procedure to the patient. I have counseled the patient as to the risks of the procedure, including but not limited to: infection, bleeding, injury to any intrabdominal organs such as liver/spleen, perforation of the GI tract, inability to complete the procedure, complications of anesthesia, etc. the patient understands. The patient was offered a surgery/procedure at a [facility] facility. The provider and patient have discussed in detail the risk of exposure to and/or potential harm posed by the COVID-19 virus with having a surgery/procedure at this time versus the risk of delaying the surgery/procedure. It is not possible to know either the risk of delaying the surgery or procedure or chance of getting an infection with perfect accuracy, but a joint decision was made between the patient and the provider to proceed at this time with the scheduled surgery/procedure. I have explained to the patient the difference between IV conscious sedation and MAC anesthesia - and I have offered either, according to the patient's wishes. I have explained that with IV conscious sedation there is no anesthesia provider available and therefore there is a limitation of the amount of IV medications that can be given and that the patient may wake up in the middle of the procedure and/or experience pain/discomfort during the procedure. Further discussion was done and the patient was given the opportunity to ask questions and all questions were answered. The patient chooses IV conscious sedation. Patient was counseled that if there are changes in his/her medical condition, to let the office know if surgery should proceed. If there are changes in patient's medical condition from time of this encounter to the day of the procedure that preclude anesthesia, patient may have procedure cancelled for patient's safety. The patient wishes to proceed. I have answered all questions to the patient s satisfaction and the patient has no further questions. Diagnoses: (Z12.11) Screening for colon cancer (primary encounter diagnosis) I have confirmed and edited as necessary, the PFSH and ROS obtained by others. Consultation requested by Dr. Nava Banks for an opinion regarding patient's screening for colon cancer. My final recommendations will be communicated back to the requesting physician by way of shared Medical record or letter to requesting physician via US mail. Return to Clinic: The patient is scheduled for procedure at [facility] on 09/22/2021. Medical Decision Making: Risk: Low: Low risk from testing/treatment Medical Decision Making Level: 2 - Straightforward Brenda Ko MD documented in this encounter [facility] 08-27-2021 Miscellaneous Notes 09-22-2021 COLON ASC documented in this encounter [facility] 08-27-2021 Instructions Brenda Ko MD - 08/27/2021 2:08 PM EDT Images from the original note were not included. Bowel Preparation Instructions for: Golytely, Nulytely, Trilyte or Colyte (polyethylene glycol 3350 and electrolytes) IF YOU DO NOT FOLLOW THESE DIRECTIONS, YOUR COLONOSCOPY WILL BE CANCELLED. [place] Instructions: Your bowel must be empty so that your doctor can clearly view your colon. Follow all of the instructions in this handout EXACTLY as they are written. Do NOT eat any solid food the ENTIRE day before your colonoscopy. Drink only clear liquids. Buy your bowel preparation at least 5 days before your colonoscopy. TRANSPORTATION on the Day of Your Exam A responsible person MUST be present with you at Check In prior to your colonoscopy and REMAIN in the endoscopy area until you are discharged. You are NOT ALLOWED to drive, take a taxi or bus, or leave the Endoscopy Center ALONE. If you do not have a responsible emergency medical technician/driver (family member or friend) with you to take you home, your exam cannot be done with sedation and will be cancelled. Please bring a list of all of your current medications, including any Over-the Counter medications with you. Medications If you take insulin, diabetic medications or blood thinners such as Coumadin (warfarin), Plavix (clopidogrel), Ticlid (ticlopidine hydrochloride), Agrylin (anagrelide), Xarelto (Rivaroxaban), Pradaxa (Dabigatran), Eliquis (Apixaban), and Effient (Prasugrel). You MUST call the doctors who orders those medicines for instructions on altering the dosage before your colonoscopy. All other medications should be taken the day of the exam with a sip of water including ASPIRIN. Five (5) Days Before Your Colonoscopy Do NOT take medicines that stop diarrhea - such as Imodium, Kaopectate, or Pepto Bismol. Do NOT take fiber supplements - such as Metamucil, Citrucel, or Perdiem. Do NOT take products that contain iron - such as multi-vitamins (the label lists what is in the products). Do NOT take Vitamin E. Buy the prescription bowel preparation solution at your local pharmacy [facility]. 1 02/2019 Bowel Preparation Instructions for: Golytely, Nulytely, Trilyte or Colyte (polyethylene glycol 3350 and electrolytes) Three (3) Days Before Your Colonoscopy Do NOT eat high-fiber foods - such as popcorn, beans, seeds (flax, sunflower, quinoa), multigrain bread, nuts, salad/vegetables, or fresh and dried fruit. One (1) Day Before Your Colonoscopy Only drink clear liquids the ENTIRE DAY before your colonoscopy. Do NOT eat any solid foods. Drink at least 8 ounces of clear liquids every hour after waking up. The clear liquids you can drink include: Clear Liquid (NO RED LIQUIDS) DO NOT DRINK Gatorade, Pedialyte or Powerade Clear broth or bouillon Coffee or tea (no milk or non-dairy creamer) Carbonated and non-carbonated soft drinks Zackery-Aid or other fruit flavored drinks Strained fruit juices (no pulp) Jell-O, popsicles, hard candy Water Alcohol Milk or non-dairy creamers Noodles or vegetables in soup Juice with pulp Liquid you cannot see through The bowel preparation solution will be consumed in two parts. Mix the solution the evening before your colonoscopy and refrigerate before drinking. You may add the flavor pack that came with the bowel preparation. Do NOT add ice, sugar or any other flavorings to the solution. Part 1 At 6:00 PM - Evening before your colonoscopy Drink an 8-oz glass of bowel preparation every 10 minutes for a total of 8 glasses. You may continue to drink clear liquids until midnight. Part 2 On the day of your colonoscopy you may drink clear liquids up to (three) 3 hours before your procedure. 4 1/2 hours before your colonoscopy Drink an 8-oz glass of bowel preparation every 10 minutes for a total of 8 glasses. Fifteen (15) minutes later, drink an 8-oz glass of clear liquids every 15 minutes for a total of 2 glasses. You may continue to drink clear liquids up to (three) 3 hours before your exam. 3 02/2019 documented in this encounter [facility] 08-27-2021 Nurse Note REVIEW OF SYSTEMS: General: The patient denies fatigue, denies weight loss, denies weight gain, denies feeling hot, and denies feelings of cold. Eyes: The patient denies glaucoma, denies eye injury/surgery, wears glasses or contacts. Ear/Nose/Throat: The patient denies allergies, NOTES hayfever, denies ear infections, and denies bloody noses. Cardiovascular: The patient denies chest pain, denies heart disease, denies high blood pressure,NOTES cardiac stent, NOTES prior heart attack, denies irregular heart beat, NOTES high cholesterol, denies poor circulation, denies heart failure, other cardiac issues, denies claudication, denies cold feet, denies peripheral arterial stent. Respiratory: The patient denies tuberculosis, denies pneumonia, denies frequent cough, denies pulmonary embolism, denies shortness of breath, and denies coughing up blood. Gastrointestinal: The patient denies difficulty swallowing, NOTES acid reflux, denies ulcers, denies vomiting, denies jaundice/hepatitis, denies gallbladder problems, denies black or tarry stools, denies hemorrhoids, denies bleeding from rectum, denies diverticulitis, denies constipation, denies diarrhea, denies loss of stool control, and denies hernias. Kidney/Bladder: The patient denies kidney stones, denies urine infections, and denies bloody urine. Skin: The patient denies a history of skin cancer, denies bleeding/changing moles, and denies a history of skin rash. Neurologic: The patient denies a history of epilepsy/convulsions, denies headaches, denies head/spinal injuries, and denies stroke/TIA. Psychiatric: The patient denies psychiatric medications, denies depression, and denies voices, denies substance abuse. Endocrine: The patient NOTES thyroid disorders, denies diabetes, and denies hormonal problems. Hematologic: The patient denies a history of bruising, denies bleeding, and denies anemia, denies blood clots. Infections: The patient denies a history of measles and mumps, denies rheumatic fever, and denies sexually transmitted diseases. Musculoskeletal: The patient denies back pain/injury, denies back problems, denies sciatica, denies knee/foot trouble, NOTES arthritis, or denies gout. When was patient's last Mammogram screening? N/A Last Colonoscopy: 2017 Kira Sales RN documented in this encounter [facility] 07-12-2021 Note HNO ID: [id number] Author: Iris Cornejo MD Service: ? Author Type: Physician Type: Progress Notes Filed: 07/12/2021 3:10 PM Note Text: Iris Cornejo MD Interventional Cardiology [address] [place], [place] [id number] Chief Complaint Patient presents with: yearly Cardiology visit F/U HTN 3 Month Arrhythmia HISTORY OF PRESENT ILLNESS: Mr. Wagoner is a 71 year old male seen in my office today prior history of coronary artery disease angioplasty of the right coronary artery LAD years ago with premature ventricular ectopics ablation procedure Patient is having recurrent episodes of premature ventricular ectopics which symptomatic to him he feels lightheaded and dizzy No angina No symptoms or signs of congestive heart failure Cardiac Risk Factors age (male over 45, female over 55), hyperlipidemia, hypertension, family history of CAD PAST MEDICAL HISTORY Diagnosis Date - Esophageal reflux - Internal hemorrhoids without mention of complication - Other and unspecified hyperlipidemia - Unspecified congenital anomaly of heart PAST SURGICAL HISTORY Procedure Laterality Date - COLONOSCOPY FLX DX W/COLLJ SPEC WHEN PFRMD 01/02/2007 - PAST SURGICAL HISTORY OF 02/24/2005 5 stents placed corinary arterty - TONSILLECTOMY PRIMARY/SECONDARY Tonsillectomy - TOTAL HIP REPLACEMENT Bilateral FAMILY HISTORY Problem Relation Age of Onset - Heart Father mi at age 64 lived to age 80 - Heart Brother - Diabetes Brother Social History Tobacco Use - Smoking status: Never Smoker - Smokeless tobacco: Never Used Substance Use Topics - Alcohol use: No - Drug use: No ALLERGIES No Known Allergies Medications: Current Outpatient Medications Medication Sig Dispense Refill - fluticasone (FLONASE) 50 mcg/actuation nasal spray Use 2 Sprays in each nostril once daily. 3 Each 4 - atorvastatin (LIPITOR) 20 mg tablet Take 1 tablet by mouth once daily. 90 tablet 3 - askpwvrszd-tkgrqfwaqarm-gqzcmwr adil 30 MG- 2 MG - 20 MCG/ML injection (CPD) 0.25 mL by INTRACAVERNOSAL route as directed. Inject 25 Units into penis as directed 4 mL 2 - Needle, Disp, 30 G (BD DISPOSABLE NEEDLES) 30 gauge x 1/2 ndle 1 Each as needed. 10 Each 11 - baclofen (LIORESAL) 20 mg tablet as needed. - Levothyroxine 88 mcg cap Take 1 capsule by mouth once daily. - multivitamin/iron/folic acid (MULTI COMPLETE WITH IRON ORAL) Take by mouth. - Omeprazole Magnesium (PRILOSEC) 10 mg suDR Take 20 mg by mouth. - nitroglycerin sublingual (NITROQUICK) 0.4 mg SL tablet Dissolve 1 tablet under the tongue as needed. FOR CHEST PAIN. IF NO RELIEF CALL 911 1 Bottle of 25 3 - Coenzyme Q10 (COQ-10) 100 mg ORAL Cap Take 100 mg by mouth once daily. 0 - FISH OIL 120 MG-180 MG-1000 MG CAP Take one(1) tablet daily. 0 - ASPIRIN 81 MG TAB Take one (1) tablet daily . 0 No current facility-administered medications for this visit. Review of Systems Constitutional: Negative for chills, diaphoresis, fever, malaise/fatigue and weight loss. HENT: Negative for congestion, ear discharge, ear pain, hearing loss, nosebleeds, sinus pain, sore throat and tinnitus. Eyes: Negative for blurred vision, double vision, photophobia, pain, discharge and redness. Respiratory: Negative for cough, hemoptysis, sputum production, shortness of breath, wheezing and stridor. Cardiovascular: Positive for palpitations. Negative for chest pain, orthopnea, claudication, leg swelling and PND. Gastrointestinal: Negative for abdominal pain, blood in stool, constipation, diarrhea, heartburn, melena, nausea and vomiting. Genitourinary: Negative for dysuria, flank pain, frequency, hematuria and urgency. Musculoskeletal: Negative for back pain, falls, joint pain, myalgias and neck pain. Skin: Negative for itching and rash. Neurological: Negative for dizziness, tingling, tremors, sensory change, speech change, focal weakness, seizures, loss of consciousness, weakness and headaches. Endo/Heme/Allergies: Negative for environmental allergies and polydipsia. Does not bruise/bleed easily. Psychiatric/Behavioral: Negative for depression, hallucinations, memory loss, substance abuse and suicidal ideas. The patient is not nervous/anxious and does not have insomnia. Physical Examination: Vitals:BP 120/64 Pulse 60 Wt 230 lb (104.3kg) SpO2 98% BP w/Orthostatic Vitals Date and Time Orthostatic BP Orthostatic Pulse BP Pulse BP Position BP Site BP Cuff Size 07/12/21 1448 -- -- 120/64 60 -- -- -- Last 2 Encounter Wt Readings: Date: Wt: 07/12/2021 104.3 kg (230 lb) 10/19/2020 99.8 kg (220 lb) Physical Exam Constitutional: General: He is not in acute distress. Appearance: He is not diaphoretic. HENT: Head: Normocephalic and atraumatic. Right Ear: External ear normal. Left Ear: External ear normal. Nose: Nose normal. Mouth/Throat: Pharynx: Oropharynx is clear. Eyes: General: Right eye: (more content not included)... [facility] 07-12-2021 History of Presen t illness Narrative Images from the original note were not included. Iris Cornejo MD Interventional Cardiology [address] [place], [place] [id number] Chief Complaint Patient presents with: yearly Cardiology visit F/U HTN 3 Month Arrhythmia HISTORY OF PRESENT ILLNESS: Mr. Wagoner is a 71 year old male seen in my office today prior history of coronary artery disease angioplasty of the right coronary artery LAD years ago with premature ventricular ectopics ablation procedure Patient is having recurrent episodes of premature ventricular ectopics which symptomatic to him he feels lightheaded and dizzy No angina No symptoms or signs of congestive heart failure Cardiac Risk Factors age (male over 45, female over 55), hyperlipidemia, hypertension, family history of CAD PAST MEDICAL HISTORY Diagnosis Date Esophageal reflux Internal hemorrhoids without mention of complication Other and unspecified hyperlipidemia Unspecified congenital anomaly of heart PAST SURGICAL HISTORY Procedure Laterality Date COLONOSCOPY FLX DX W/COLLJ SPEC WHEN PFRMD 01/02/2007 PAST SURGICAL HISTORY OF 02/24/2005 5 stents placed corinary arterty TONSILLECTOMY PRIMARY/SECONDARY <AGE 10 Tonsillectomy TOTAL HIP REPLACEMENT Bilateral FAMILY HISTORY Problem Relation Age of Onset Heart Father mi at age 64 lived to age 80 Heart Brother Diabetes Brother Social History Tobacco Use Smoking status: Never Smoker Smokeless tobacco: Never Used Substance Use Topics Alcohol use: No Drug use: No ALLERGIES No Known Allergies Medications: Current Outpatient Medications Medication Sig Dispense Refill fluticasone (FLONASE) 50 mcg/actuation nasal spray Use 2 Sprays in each nostril once daily. 3 Each 4 atorvastatin (LIPITOR) 20 mg tablet Take 1 tablet by mouth once daily. 90 tablet 3 rsswspdetd-xaxhdmwkjipa-dkioyso adil 30 MG- 2 MG - 20 MCG/ML injection (CPD) 0.25 mL by INTRACAVERNOSAL route as directed. Inject 25 Units into penis as directed 4 mL 2 Needle, Disp, 30 G (BD DISPOSABLE NEEDLES) 30 gauge x 1/2 ndle 1 Each as needed. 10 Each 11 baclofen (LIORESAL) 20 mg tablet as needed. Levothyroxine 88 mcg cap Take 1 capsule by mouth once daily. multivitamin/iron/folic acid (MULTI COMPLETE WITH IRON ORAL) Take by mouth. Omeprazole Magnesium (PRILOSEC) 10 mg suDR Take 20 mg by mouth. nitroglycerin sublingual (NITROQUICK) 0.4 mg SL tablet Dissolve 1 tablet under the tongue as needed. FOR CHEST PAIN. IF NO RELIEF CALL 911 1 Bottle of 25 3 Coenzyme Q10 (COQ-10) 100 mg ORAL Cap Take 100 mg by mouth once daily. 0 FISH OIL 120 MG-180 MG-1000 MG CAP Take one(1) tablet daily. 0 ASPIRIN 81 MG TAB Take one (1) tablet daily . 0 No current facility-administered medications for this visit. Review of Systems Constitutional: Negative for chills, diaphoresis, fever, malaise/fatigue and weight loss. HENT: Negative for congestion, ear discharge, ear pain, hearing loss, nosebleeds, sinus pain, sore throat and tinnitus. Eyes: Negative for blurred vision, double vision, photophobia, pain, discharge and redness. Respiratory: Negative for cough, hemoptysis, sputum production, shortness of breath, wheezing and stridor. Cardiovascular: Positive for palpitations. Negative for chest pain, orthopnea, claudication, leg swelling and PND. Gastrointestinal: Negative for abdominal pain, blood in stool, constipation, diarrhea, heartburn, melena, nausea and vomiting. Genitourinary: Negative for dysuria, flank pain, frequency, hematuria and urgency. Musculoskeletal: Negative for back pain, falls, joint pain, myalgias and neck pain. Skin: Negative for itching and rash. Neurological: Negative for dizziness, tingling, tremors, sensory change, speech change, focal weakness, seizures, loss of consciousness, weakness and headaches. Endo/Heme/Allergies: Negative for environmental allergies and polydipsia. Does not bruise/bleed easily. Psychiatric/Behavioral: Negative for depression, hallucinations, memory loss, substance abuse and suicidal ideas. The patient is not nervous/anxious and does not have insomnia. Physical Examination: Vitals:BP 120/64 Pulse 60 Wt 230 lb (104.3kg) SpO2 98% BP w/Orthostatic Vitals Date and Time Orthostatic BP Orthostatic Pulse BP Pulse BP Position BP Site BP Cuff Size 07/12/21 1448 -- -- 120/64 60 -- -- -- Last 2 Encounter Wt Readings: Date: Wt: 07/12/2021 104.3 kg (230 lb) 10/19/2020 99.8 kg (220 lb) Physical Exam Constitutional: General: He is not in acute distress. Appearance: He is not diaphoretic. HENT: Head: Normocephalic and atraumatic. Right Ear: External ear normal. Left Ear: External ear normal. Nose: Nose normal. Mouth/Throat: Pharynx: Oropharynx is clear. Eyes: General: Right eye: No discharge. Left eye: No discharge. Conjunctiva/sclera: Conjunctivae normal. Pupils: Pupils are equal, round, and reactive to light. Cardiovascular: Rate and Rhythm: Normal rate and regular rhythm. Heart sounds: Normal heart sounds, S1 normal and S2 normal. No murmur heard. No friction rub. No gallop. No S3 or S4 sounds. Pulmonary: Effort: Pulmonary effort is normal. No respiratory distress. Breath sounds: Normal breath sounds. No wheezing or rales. Chest: Chest wall: No tenderness. Musculoskeletal: General: Normal range of motion. Cervical back: Normal range of motion and neck supple. Skin: General: Skin is warm and dry. Neurological: Mental Status: He is alert and oriented to person, place, and time. Psychiatric: Mood and Affect: Mood normal. Thought Content: Thought content normal. Pertinent Labs: CBC: Hemoglobin (g/dL) Date Value 10/09/2020 14.9 Hematocrit (%) Date Value 10/09/2020 45.6 WBC (k/uL) Date Value 10/09/2020 5.60 Platelet Count (k/uL) Date Value 10/09/2020 166 BMP: Glucose (mg/dL) Date Value 10/09/2020 107 Potassium (mmol/L) Date Value 10/09/2020 4.5 Sodium (mmol/L) Date Value 10/09/2020 138 Chloride (mmol/L) Date Value 10/09/2020 101 CO2 (mmol/L) Date Value 10/09/2020 27 Creatinine (mg/dL) Date Value 10/09/2020 1.04 BUN (mg/dL) Date Value 10/09/2020 11 Anion Gap (mmol/L) Date Value 10/09/2020 10 Calcium (mg/dL) Date Value 10/09/2020 9.5 INR: Lipid Profile: Cholesterol, Total Date Value Ref Range Status 10/28/2020 133 <200 mg/dL Final Comment: <200 mg/dL, Desirable 200-239 mg/dL, Borderline high >239 mg/dL, High HDL Cholesterol Date Value Ref Range Status 10/28/2020 54 >39 mg/dL Final Comment: 40-59 mg/dL, Acceptable >59 mg/dL, High: Negative risk factor for coronary heart disease <40 mg/dL, Low: Positive risk factor for coronary heart disease LDL Cholesterol Date Value Ref Range Status 10/28/2020 69 <100 mg/dL Final Comment: <100 mg/dL, Optimal 100-129 mg/dL, Near optimal/above optimal 130-159 mg/dL, Borderline high 160-189 mg/dL, High >189 mg/dL, Very high Secondary prevention optimal LDL Cholesterol levels are recommended to be < 70 mg/dL Triglyceride Date Value Ref Range Status 10/28/2020 48 <150 mg/dL Final Comment: <150 mg/dL, Normal 150-199 mg/dL, Borderline high 200-499 mg/dL, High >499 mg/dL, Very high Hemoglobin A1C: No results found for: HGBA1C TSH: No results found for: TSHREFL Prior Cardiac Testing none Assessment and Plan: 71 years old stable coronary artery disease with prior history of angioplasty recurrent episodes of premature ventricular ectopics Begin to wean off his beta-princess completely off his can stop taking his No testing is required Follow-up in 6 months Follow up plannin months follow up Electronically signed by Iris Cornejo MD on July 12, 2021, 3:07 PM The above note was partially created using a dictation recognition software. A reasonable attempt has been made to correct any errors. documented in this encounter [facility] 03-15-2021 Note HNO ID: [id number] Author: Lio Woodall APRN.CLERK [employer]EL [employer]ATIONS Service: ? Author Type: Nurse Practitioner Type: Progress Notes Filed: 03/15/2021 10:47 PM Note Text: [facility] FOLLOW UP PATIENT: Anish Wagoner Patient has been identified by name and date of : Yes PCP: Nava Banks DO, DO CHIEF COMPLAINT: Erectile Dysfunction Some notes from previous encounters were imported as a reference for the current encounter. All information in this note has been verified. Data or information that hasn't changed was retained from previous note and the rest was revised or updated where relevant HISTORY OF PRESENT ILLNESS: Anish Wagoner is a 71 year old male presenting today for follow up for above Last visit date: 08/07/2020 for ICI injection teaching. His initial prescription was for Bi-Mix phentolamine-alprostadil 0.5 mg - 20 mcg/mL injection prescribed by . He had about 50% response in the office with 10 units at the time of teaching. He reported poor response at home with doses up to 30 Units. In August I changed him over to TRI-MIx 30-1-10 and again insufficient response with doses up to 40 units. I September I sent script for Tri-Mix 30-2-20 Interval Update He used tri- mix (30-2-20) about 10 times. Erections did not get firm enough for penetration and did not last. 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 He is wondering about his testosterone levels due to decreased libido. He had testosterone checked 05/2020 external lab (scanned into chart) and his level was 500. He is wondering if this is accurate and wishes to have it re-tested. REVIEW OF SYSTEMS: relevant updates noted in HPI PAST MEDICAL HISTORY: PAST MEDICAL HISTORY Diagnosis Date - Esophageal reflux - Internal hemorrhoids without mention of complication - Other and unspecified hyperlipidemia - Unspecified congenital anomaly of heart PAST SURGICAL HISTORY Procedure Laterality Date - COLONOSCOP W/ OR W/O BRSH SPEC 01/02/2007 - PAST SURGICAL HISTORY OF 02/24/2005 5 stents placed corinary arterty - REMOVAL OF TONSILS,<12 Y/O Tonsillectomy - TOTAL HIP REPLACEMENT Bilateral Social History Tobacco Use - Smoking status: Never Smoker - Smokeless tobacco: Never Used Substance Use Topics - Alcohol use: No - Drug use: No FAMILY HISTORY Problem Relation Age of Onset - Heart Father mi at age 64 lived to age 80 - Heart Brother - Diabetes Brother MEDICATIONS: Current Outpatient Medications Medication Sig - fluticasone (FLONASE) 50 mcg/actuation nasal spray Use 2 Sprays in each nostril once daily. - atorvastatin (LIPITOR) 20 mg tablet Take 1 tablet by mouth once daily. - metoprolol succinate ER (TOPROL XL) 25 mg 24 hr tablet Take 1 tablet by mouth once daily. - potassium chloride ER (K-DUR, KLOR-CON) 10 mEq tablet Take 1 tablet by mouth once daily. - rjddistwxl-ulqwqauhaask-tcsmuea adil 30 MG- 2 MG - 20 MCG/ML injection (CPD) 0.25 mL by INTRACAVERNOSAL route as directed. Inject 25 Units into penis as directed - Needle, Disp, 30 G (BD DISPOSABLE NEEDLES) 30 gauge x 1/2 ndle 1 Each as needed. - baclofen (LIORESAL) 20 mg tablet as needed. - Levothyroxine 88 mcg cap Take 1 capsule by mouth once daily. - multivitamin/iron/folic acid (MULTI COMPLETE WITH IRON ORAL) Take by mouth. - Omeprazole Magnesium (PRILOSEC) 10 mg suDR Take 20 mg by mouth. - nitroglycerin sublingual (NITROQUICK) 0.4 mg SL tablet Dissolve 1 tablet under the tongue as needed. FOR CHEST PAIN. IF NO RELIEF CALL 911 - Coenzyme Q10 (COQ-10) 100 mg ORAL Cap Take 100 mg by mouth once daily. - FISH OIL 120 MG-180 MG-1000 MG CAP Take one(1) tablet daily. - ASPIRIN 81 MG TAB Take one (1) tablet daily . - Insulin Syringe-Needle U-100 (ULTRA FINE INSULIN) 1 mL 30 gauge x 1/2 1 Each as needed. - phentolamine-alprostadil 0.5 mg - 20 mcg/mL injection (CPD) Inject 10 units in office as directed. Bring COLD to injection appt. No current facility-administered medications for this visit. OTHER DATA: Labs reviewed PSA (ng/mL) Date Value 12/10/2015 1.32 Creatinine Date Value Ref Range Status 10/09/2020 1.04 0.73 - 1.22 mg/dL Final 10/01/2018 1.00 0.70 - 1.40 mg/dL Final 06/11/2018 0.98 0.73 - 1.22 mg/dL Final 07/28/2017 1.03 0.73 - 1.22 mg/dL Final PHYSICAL EXAMINATION: General appearance: cooperative, pleasant, no acute distress, alert and oriented, well nourished male. Neuro: normal affect, normal speech, gait is normal. Lungs/chest: no signs of respiratory distress, no audible wheezing Extremities: normal motor function. ASSESSMENT: 1. Low libido - ICD9: 799.81, ICD10: R68.82 (primary diagnosis) 2. Erectile dysfunction due to arterial insufficiency - ICD9: 607.84, ICD10: N52.01 PLAN: 1. Low libido -05/2020 T level 500 - re-check to (more content not included)... [facility] 03-02-2021 Note HNO ID: [id number] Author: Semaj Benjamin MD Service: ? Author Type: Physician Type: Progress Notes Filed: 03/03/2021 8:48 AM Note Text: SECTION OF RHINOLOGY, SINUS AND SKULL BASE SURGERY Head and Neck [place], [facility] FOLLOW-UP CLINIC NOTE ASSESSMENT and PLAN: s/p ESS for CRSwoP. Doing well. Reviewed expected disease course, questions answered. -PRN FU -Nasal Endoscopy today - s/p ESS: crusting removed, healing well. 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 Patient is doing well. No significant issues. Denies bleeding, headache, or clear drainage.Some intermittent congestin but nothing major . Irrigates still. No concerns. Date of Surgery: 10/30/2020rocedure(s): 1. Right maxillary antrostomy with removal of disease, endoscopic 2. Right total ethmoidectomy, endoscopic 3. Right frontal sinusotomy, endoscopic 4. Right emory bullosa resection 5. Bilateral inferior turbinate reduction 6. Bilateral inferior turbinate outfracture 7. Imaged guided surgical navigation - extradural Operative Findings: Mucosal disease involving the right maxillary, ethmoid, and frontal sinuses. The right middle turbinate was polypoid throughout and had an intra-lamellar cell consistent with a emory. Therefore the emory bullosa was resected. 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 Inferior turbinate hypertrophy. Physical Examination: General: Pt appears stated age, face is symmetric. Pt is alert and oriented and in no acute distress, voice is normal. Nose: Anterior rhinoscopy reveals no purulence or crusting. No tenderness to palpation of sinuses. Crusting noted. PROCEDURE NOTE: Procedure: POSTOP DEBRIDEMENT Indication: CRS, fungal ball Informed Consent obtained: risks, benefits, alternatives, and expectations discussed with pt and the pt wishes to proceed. Findings: After anesthesia and decongestion with topical ponticaine and afrin spray, the nasal cavities were exmained and debrided with a 0-degree endoscope. Large crusts were taken down from the anterior nasal chambers with a straight Blakesley forceps. The middle turbinates were in good position. Maxillary and ethmoids widely patent. There is no CSF leak. Things are healing well. The patient tolerated the procedure well and there were no complications MD Semaj Kay MD, FACS, FRCS(C) Section Head, Rhinology Sinus and Skull Base Surgery Head and Neck [place], [facility] Portions of this note were copied and pasted from my prior note. This note has been edited and is current for today's encounter. [facility] Evaluation + Plan note No data available for this section [facility] documented in this encounter [facility] note* Diagnosis Screening for colon cancer- Primary Special screening for malignant neoplasms, colon documented in this encounter [facility] note* Diagnosis Screening for colon cancer Special screening for malignant neoplasms, colon documented in this encounter [facility] note* Diagnosis Mixed hyperlipidemia, intolerant of atorvastatin Mixed hyperlipidemia documented in this encounter [facility] note* Diagnosis Familial hypercholesterolemia- Primary Pure hypercholesterolemia documented in this encounter [facility] note* Diagnosis Mixed hyperlipidemia, intolerant of atorvastatin Mixed hyperlipidemia documented in this encounter [facility] Discharge instructions No data available for this section [facility] Reason for referral (narrative)* Outpatient Procedure (Routine) - Pending Review Specialty Diagnoses / Procedures Referred By Claudio ann Referred To Contact [facility] Diagnoses Screening for colon cancer Procedures COLONOSCOPY SCREENING COLONOSCOPY FLX DX W/COLLJ SPEC WHEN Brenda Martinez MD [address] [place] [address] [facility] [address] [place] [address] Referral ID Status Reason Start Date Expiration Date Visits Requested Visits Authorized [id number] Pending Review Auto-Generat ed Referral 08/27/2021 08/27/2022 1 1 [facility] for referral (narrative)* Outpatient Procedure (Routine) - Closed Specialty Diagnoses / Procedures Referred By Claudio ann Referred To Contact [facility] Diagnoses Screening for colon cancer Procedures COLONOSCOPY SCREENING COLONOSCOPY FLX DX W/COLLJ SPEC WHEN Brenda Martinez MD [address] [place] [address] [facility] [address] [place] [address] Referral ID Status Reason Start Date Expiration Date V isits Requested Visits Authorized [id number] Closed Auto-Generate d Referral 09/13/2021 10/25/2021 1 1 [facility] for visit Narrative* Outpatient Procedure (Routine) - Closed Specialty Diagnoses / Procedures Referred By Claudio ann Referred To Contact [facility] Diagnoses Screening for colon cancer Procedures COLONOSCOPY SCREENING COLONOSCOPY FLX DX W/COLLJ SPEC WHEN Brenda Martinez MD [address] [address] [facility] [address] [place] [address] Referral ID Status Reason Start Date Expiration Date V isits Requested Visits Authorized [id number] Closed Auto-Generate d Referral 09/13/2021 10/25/2021 1 1 [facility] Summary Purpose Family History No Family History Records FoundNo Family History Records FoundNo Family History Records FoundNo Family History Records FoundNo Family History Records FoundNo Family History Records FoundNo Family History Records Found Advance Directives Documents on File Type Date Recorded Patient Supervisor [employer] Expl anation Advance Directive(s) 10/30/2020 7:44 AM Advance Directive(s) 10/01/2018 6:20 AM Advance Directive(s) 09/28/2018 1:10 PM Documents on File Type Date Recorded Patient Supervisor [employer] Expl anation Advance Directive(s) 10/30/2020 7:44 AM Advance Directive(s) 10/01/2018 6:20 AM Advance Directive(s) 09/28/2018 1:10 PM Assessments Note CONSULTATION DICTATED BY: BEAU ESTEVEZ MD DATE OF SERVICE: 07/09/2018 NAME: ANISH WAGONERLexy DATE OF : 1950 SURGERY DATE: 07/26/2018 REFERRING PHYSICIAN: Rodolfo Harley MD ADMISSION DIAGNOSIS: Osteoarthritis of the left hip. CHIEF COMPLAINT: Preoperative medical risk stratification. HISTORY OF PRESENT ILLNESS: This is a 68-year-old male who presents for preoperative medical risk stratification prior to left total hip replacement at the request of Dr. Harley. He has had increasing pain in the left hip over the past 2 years. It is constant and associated with all activities. It has failed to respond to conservative treatments, and he is now scheduled for a left total hip replacement on 07/26/2018. Please see below regarding the status of active medical conditions and assessment and plan for preoperative medical risk stratification. PAST MEDICAL HISTORY: Surgeries: 1. Remote nasal surgery for turbinectomy. 2. Remote laceration repair on the right elbow. 3. 2005, coronary (more content not included)... Note HNO ID: [id number] Author: Eduardo Vinson Service: Electrophysiology Author Type: Nurse Practitioner Type: Discharge Summary Filed: 10/02/2018 3:31 PM Note Text: Attestation signed by Jenae Fierro MD at 10/09/2018 8:58 AM Jenae Fierro MD Electrophysiology staff pager [phone] October 09, 2018 8:58 AM DISCHARGE SUMMARY PATIENT NAME: Anish Wagoner ADMISSION DATE: 10/01/2018 DISCHARGE DATE: 10/02/2018 ATTENDING PHYSICIAN: Jenae Duckworth* Code Status: Not on file Highest Readmission Risk Score: 7 The 30 day readmissions risk score is derived from an internally validated risk model which evaluates patient level characteristics, utilization history, medication orders and lab results up until the day of discharge. Patients with a score of 40 or above are considered highest risk for readmission (more content not included)... Hospital Course Note HNO ID: [id number] Author: Eduardo Vinson Service: Electrophysiology Author Type: Nurse Practitioner Type: Discharge Summary Filed: 10/02/2018 3:31 PM Note Text: Attestation signed by Jenae Fierro MD at 10/09/2018 8:58 AM Jenae Fierro MD Electrophysiology staff pager [phone] October 09, 2018 8:58 AM DISCHARGE SUMMARY PATIENT NAME: Anish Wagoner ADMISSION DATE: 10/01/2018 DISCHARGE DATE: 10/02/2018 ATTENDING PHYSICIAN: Jenae Duckworth* Code Status: Not on file Highest Readmission Risk Score: 7 The 30 day readmissions risk score is derived from an internally validated risk model which evaluates patient level characteristics, utilization history, medication orders and lab results up until the day of discharge. Patients with a score of 40 or above are considered highest risk for readmission (more content not included)... Medications Administered Section Inactive Administered Medications - up to 3 most recent administrations Medication Order MAR Action Action Date Dose Rate Site diphenhydrAMINE 12.5-50 mg injection (BENADRYL) 12.5-50 mg, INTRAVENOUS, DIRECTED, Starting on Mon10/20/21 at 1030, Until Mon10/20/21 at 1429, DOSING DIRECTED BY PHYSICIAN FOR PROCEDURAL SEDATION ONLY, Intraprocedure Given 10/20/2021 10:04 AM EDT 50 mg fentaNYL 50 mcg/mL 25-100 mcg injection (SUBLIMAZE) 25-100 mcg, INTRAVENOUS, DIRECTED, Starting on Mon10/20/21 at 1030, Until Mon10/20/21 at 1429, DOSING DIRECTED BY PHYSICIAN FOR PROCEDURAL SEDATION ONLY, Intraprocedure Given 10/20/2021 10:13 AM EDT 50 mcg Additional Source Comments (unrecognized sect ion and content) No Status Records FoundNo Status Records FoundNo Status Records FoundNo Status Records FoundNo Status Records FoundNo Status Records FoundNo Status Records Found INFORMATION SOURCE (unrecogn ized section and content) DATE CREATED AUTHOR AUTHOR'S ORGANIZ ATION 09/15/2017 [facility] DATE CREATED AUTHOR AUTHOR'S ORGANIZ ATION 09/18/2018 [facility] DATE CREATED AUTHOR AUTHOR'S ORGANIZ ATION 10/09/2018 [facility] DATE CREATED AUTHOR AUTHOR'S ORGANIZ ATION 10/14/2018 [facility] DATE CREATED AUTHOR AUTHOR'S ORGANIZ ATION 02/04/2022 [facility] DATE CREATED AUTHOR AUTHOR'S ORGANIZ ATION 06/19/[address] [facility] ([place]) Source Comments (unrecognize d section and content) In the event this informatio n is protected by the Federal Confidentiality of Alcohol and Drug Abuse Patient Records regulations: The Federal rules restrict any use of the information to criminally investigate or prosecute any alcohol or drug abuse patient.[facility] the event this information is protected by the Federal Confidentiality of Alcohol and Drug Abuse Patient Records regulations: The Federal rules restrict any use of the information to criminally investigate or prosecute any alcohol or drug abuse patient.[facility] the event this information is protected by the Federal Confidentiality of Alcohol and Drug Abuse Patient Records regulations: The Federal rules restrict any use of the information to criminally investigate or prosecute any alcohol or drug abuse patient.[facility] the event this information is protected by the Federal Confidentiality of Alcohol and Drug Abuse Patient Records regulations: The Federal rules restrict any use of the information to criminally investigate or prosecute any alcohol or drug abuse patient.[facility] the event this information is protected by the Federal Confidentiality of Alcohol and Drug Abuse Patient Records regulations: The Federal rules restrict any use of the information to criminally investigate or prosecute any alcohol or drug abuse patient.[facility] the event this information is protected by the Federal Confidentiality of Alcohol and Drug Abuse Patient Records regulations: The Federal rules restrict any use of the information to criminally investigate or prosecute any alcohol or drug abuse patient.[facility] the event this information is protected by the Federal Confidentiality of Alcohol and Drug Abuse Patient Records regulations: The Federal rules restrict any use of the information to criminally investigate or prosecute any alcohol or drug abuse patient.[facility] the event this information is protected by the Federal Confidentiality of Alcohol and Drug Abuse Patient Records regulations: The Federal rules restrict any use of the information to criminally investigate or prosecute any alcohol or drug abuse patient.[facility] Reason for Visit (unrecogniz ed section and content) Reason Comments Consult colonoscopy consulta tion Reason Comments 09-22-2021 [facility] Reason Comments Refill Request Reason Comments Established Patient Follow-Up Care Teams (unrecognized sec tion and content) Small Piece Cutter Relationship Specialty Start Date End Date Nava Banks DO PCP - General 04/30/08 Darinel Awan MD [address] [facility] [address] [place] [address] Referring Orthopedics 09/14/18 Small Piece Cutter Relationship Specialty Start Date End Date Nava Banks DO [address] [place] [address] PCP - General Family Practice 08/25/21 Darinel Awan MD [address] [place] [address] Referring Orthopedics 09/14/18 Small Piece Cutter Relationship Specialty Start Date End Date Nava Banks DO [address] [place] [address] PCP - General Family Practice 08/25/21 Darinel Awan MD [address] [place] [address] Referring Orthopedics 09/14/18 Small Piece Cutter Relationship Specialty Start Date End Date Nava Banks DO [address] [place] [address] PCP - General Family Practice 08/25/21 Darinel Awan MD [address] [place] [address] Referring Orthopedics 09/14/18 Small Piece Cutter Relationship Specialty Start Date End Date Nava Banks DO [address] [place] [address] PCP - General Family Medicine 08/25/21 Darinel Awan MD [address] [place] [address] Referring Orthopedics 09/14/18 Small Piece Cutter Relationship Specialty Start Date End Date Nava Banks DO [address] [place] [address] PCP - General Family Medicine 08/25/21 Darinel Awan MD [address] [place] [address] Referring Orthopedics 09/14/18 Small Piece Cutter Relationship Specialty Start Date End Date Nava Banks DO [address] [place] [address] PCP - General Family Medicine 08/25/21 Darinel Awan MD [address] [place] [address] Referring Orthopedics 09/14/18 FOR RECORDS PERTAINING TO PATIENTS WHO ARE OR HAVE BEEN ENROLLED IN A CHEMICAL DEPENDENCY/SUBSTANCEABUSE PROGRAM, SOME INFORMATION MAY BE OMITTED. This clinical summary was aggregated from multiple sources. Caution should be exercised in using it in the provision of clinical care. This summary normalizes information from multiple sources, and as a consequence, information in this document may materially change the coding, format and clinical context of patient data. In addition, data may be omitted in some cases. CLINICAL DECISIONS SHOULD BE BASED ON THE PRIMARY CLINICAL RECORDS. [facility] [employer] [facility]. provides no warranty or guarantee of the accuracy or completeness of information in this document.
--- NOTE | 2023-05-31 17:39 | STRESSREP_ITS ---
Stress Test Report Exercise myocardial perfusion stress test. 73-year-old male with a history of coronary disease Stress protocol: Resting EKG demonstrates sinus bradycardia with a rate of 52 bpm resting blood pressure is 118/74 mmHg. The patient exercised according to the regular Harpal protocol for a total duration of 9 minutes and 16 seconds attaining a maximum heart rate of 123 bpm which was 84% of maximum predicted heart rate; the maximum workload was 10.9 metabolic equivalents. At rest there were no ST or T wave changes noted to suggest ischemia and at peak exercise upsloping ST changes only were noted which did not meet the criteria for ischemia. No clinical angina was noted the test was terminated due to the target heart rate being achieved/ fatigue. The peak blood pressure was 180/62 mmHg. Rate-pressure product was 18,900. Myocardial perfusion protocol. 14.3 mCi of technetium 99m sestamibi was injected at rest. The patient exercised according to regular Harpal protocol for total duration of 9 minutes and 16 seconds and at peak exercise 43.9 mCi of technetium 99m sestamibi was injected stress images were obtained stress and rest images were reconstructed in comparing the short axis vertical long and horizontal long axis. Gated images were also obtained. Perfusion SPECT analysis: Review of the stress images demonstrate normal uptake of tracer noted in all areas of the myocardium with mild reduction noted in the mid anterior septum as well as the mid inferior wall. The resting images demonstrate a similar pattern suggestive of a previous infarct noted in the mid anterior and mid inferior shukla. No areas of reversibility are noted to suggest ischemia. Gated SPECT analysis: The gated ejection fraction is 41%. Conclusion: Normal exercise myocardial perfusion stress test at a high workload Mildly reduced ejection fraction.
== END | disposition home or self-care (01) ==
LOC: CVS 06:04
PROVIDERS: PCP Family Medicine; Referring Provider Internal Medicine Cardiovascular Disease; Visit Provider Internal Medicine Cardiovascular Disease
DX: I25.10 Atherosclerotic heart disease of native coronary artery without angina pectoris (principal)
CPT/HCPCS: 78452; 93017; 93306; A9500; Q9957; A4216; C8929

== ENCOUNTER → 2024-03-13 | Outpatient (CLI) | payer MEDICARE, SELFPAY ==
[2024-03-13 17:54] LABS: AST(SGOT) 14 U/L (15-37); Alanine Aminotransfer ALT/SGPT 19 U/L (16-61); Albumin, Serum 3.6 g/dL (3.2-5.0); Alkaline Phosphatase 72 U/L (45-117); Anion Gap 3 (5-15); BUN 19 mg/dL (7-18); BUN/Creat Ratio 16.8 RATIO (10-20); Calcium,Total 8.9 mg/dL (8.5-10.1); Chloride 106 mmol/L (98-107); Creatinine, Serum 1.13 mg/dL (0.70-1.30); EST Glomerular Filtration Rate 67 mL/min (>60); Est Glom Filt Rate - Afr Amer 81 mL/min (>60); Globulin 3.7 g/dL (2.2-4.2); Glucose 123 mg/dL (74-106); Potassium 4.3 mmol/L (3.5-5.1); Protein, Total 7.3 g/dL (6.4-8.2); Sodium Level 137 mmol/L (136-145)
[2024-03-15 14:08] LABS: Thyroglobulin Antibody < 1.0 IU/mL (0.0-0.9); Thyroid Peroxidase AB 19 IU/mL (0-34)
== END | disposition home or self-care (01) ==
LOC: BIMLAB 14:31
PROVIDERS: PCP Family Medicine; Referring Provider Family Medicine; Visit Provider Family Medicine
DX: E03.9 Hypothyroidism, unspecified (principal); E78.2 Mixed hyperlipidemia
CPT/HCPCS: 36415; 80053; 84443; 86376; 86800

== ENCOUNTER → 2024-04-03 | Outpatient (CLI) | payer MEDICARE, SELFPAY ==
[2024-04-03 13:05] LABS: AST(SGOT) 20 U/L (15-37); Alanine Aminotransfer ALT/SGPT 23 U/L (16-61); Albumin, Serum 3.4 g/dL (3.2-5.0); Alkaline Phosphatase 68 U/L (45-117); Bilirubin, Direct 0.39 mg/dL (0.00-0.30); Cholesterol 124 mg/dL (200); Globulin 3.7 g/dL (2.2-4.2); High Density Lipoprotein 52 mg/dL; Protein, Total 7.1 g/dL (6.4-8.2); Triglycerides 47 mg/dL; Very Low Density Lipoprotein 9 mg/dL (5-40)
== END | disposition home or self-care (01) ==
PROVIDERS: PCP Family Medicine; Referring Provider Nurse Practitioner Family; Visit Provider Nurse Practitioner Family
DX: E78.2 Mixed hyperlipidemia (principal); I49.8 Other specified cardiac arrhythmias
CPT/HCPCS: 36415; 80061; 80076

== ENCOUNTER → 2024-09-06 | Outpatient (CLI) | payer MEDICARE, SELFPAY | END | disposition home or self-care (01) | LOC: BIMLAB 12:06 | PROVIDERS: PCP Family Medicine; Referring Provider Family Medicine; Visit Provider Family Medicine | DX: E03.9 Hypothyroidism, unspecified (principal) | CPT/HCPCS: 36415; 84439; 84443 ==

== ENCOUNTER → 2025-02-12 | Outpatient (CLI) | payer MEDICARE, SELFPAY ==
[2025-02-12 18:24] LABS: Cholesterol 152 mg/dL (<=200); Low Density Lipoprotein Calc. 80 mg/dL; Triglycerides 64 mg/dL; Very Low Density Lipoprotein 13 mg/dL (5-40); cholesterol:hdl ratio screen 2.59
[2025-02-12 18:43] LABS: AST(SGOT) 21 U/L (<=37); Alanine Aminotransfer ALT/SGPT 13 U/L (<=46); Albumin, Serum 4.2 g/dL (3.4-4.8); Alkaline Phosphatase 65 U/L (40-129); Anion Gap 8 (5-15); BUN 17 mg/dL (4-19); BUN/Creat Ratio 16.4 RATIO (10-20); Calcium,Total 9.5 mg/dL (7.6-11.0); Carbon Dioxide 26.0 mmol/L (21.0-32.0); Chloride 103 mmol/L (98-108); Globulin 3.0 g/dL (2.2-4.2); Glucose 98 mg/dL (70-99); Potassium 4.3 mmol/L (3.3-5.1)
== END | disposition home or self-care (01) ==
LOC: LAB 16:28
PROVIDERS: PCP Family Medicine; Referring Provider Family Medicine; Visit Provider Family Medicine
DX: E03.9 Hypothyroidism, unspecified (principal); E78.5 Hyperlipidemia, unspecified; G25.81 Restless legs syndrome
CPT/HCPCS: 36415; 80053; 80061; 84443

== ENCOUNTER → 2025-03-17 | Outpatient (CLI) | payer MEDICARE, SELFPAY ==
[2025-03-17 11:35] LABS: PSA,Total- Diagnostic 1.12 ng/mL (0.00-4.00)
== END | disposition home or self-care (01) ==
LOC: LAB 10:29
PROVIDERS: PCP Family Medicine; Referring Provider Family Medicine; Visit Provider Family Medicine
DX: R35.0 Frequency of micturition (principal)
CPT/HCPCS: 36415; 84153